=== PATIENT | female | born 1940 | race Caucasian/White ===

== ENCOUNTER 2019-06-07 07:14 | Outpatient (CLI) | payer MEDICARE ==
[2019-06-07 11:58] LABS: ALT (SGPT) 13 U/L (8-55); AST (SGOT) 21 U/L (5-34); Albumin 4.2 g/dL (3.4-4.8); Alkaline Phosphatase 73 U/L (40-110); Anion Gap 11 mmol/L (10-20); BUN (Urea Nitrogen) 19 mg/dL (9.8-20.1); Band 12 % (5-11); Calc. Creatinine Clearance 0 mL/min (70-130); Calcium 9.6 mg/dL (7.8-10.44); Carbon Dioxide 24 mmol/L (23-31); Chloride 109 mmol/L (98-107); Estimated GFR-MDRD 85; Globulin 2.3 g/dL (2.4-3.5); Glucose 98 mg/dL (83-110); Hemoglobin 13.4 g/dL (12.0-16.0); Lymphocytes 44 % (21-51); MDiff Complete? YES; Mean Corpuscular Hemoglobin 30.1 pg (27.0-31.0); Mean Corpuscular Volume 91.3 fL (78.0-98.0); Mean Platelet Volume 7.9 fL (7.4-10.4); Monocytes 5 % (0-10); Neutrophil 33 % (42-75); Platelet Count 184 thou/uL (130-400); Potassium 4.2 mmol/L (3.5-5.1); Protein, Total 6.5 g/dL (6.0-8.3); RBC Distribution Width 13.8 % (11.5-14.5); Reactive Lymphocytes 6 % (0-10); Red Blood Cell (RBC) Count 4.44 mill/uL (4.20-5.40); Sodium 140 mmol/L (136-145); White Blood Cell (WBC) Count 13.6 thou/uL (4.8-10.8)
== END 2019-06-07 07:15 | disposition home or self-care (01) ==
LOC: LABBT 07:14
PROVIDERS: ATTEND Surgery
DX: Z01.818 Encounter for other preprocedural examination (principal); R59.0 Localized enlarged lymph nodes
CPT/HCPCS: 80053; 85025; 93005; 93010

== ENCOUNTER 2019-06-12 07:49 | Day surgery (SDC) | payer MEDICARE ==
[2019-06-07 10:41] VITALS: BMI 25.8
[2019-06-12] MEDS ORDERED: Levofloxacin 500 mg/D5W 100 ml Premix Bag ONE (09:16)
[2019-06-12] MEDS ORDERED: Lidocaine 1% PF 5 ML VIAL ONE (09:27)
[2019-06-12] MEDS ORDERED: Ondansetron PF 4 MG/2 ML Vial ONE (09:27)
[2019-06-12] MEDS ORDERED: PROPOFOL 200 MG/20 ML VIAL ONE (09:27)
[2019-06-12] MEDS ORDERED: Glycopyrrolate 0.2 MG/ML 5 ML SYRINGE ONE (09:27)
[2019-06-12] MEDS ORDERED: Midazolam HCl 2 mg/2 ml Vial ONE (10:12)
[2019-06-12] MEDS ORDERED: Lidocaine 1% w/Epinephrine 1:100K 20 ML VIAL ONE (10:16)
[2019-06-12] MEDS ORDERED: Bupivacaine 0.25% HCL 30 ML VIAL ONE (10:16)
[2019-06-12] MEDS ORDERED: Fentanyl 100 MCG/2 ML VIAL ONE (10:21)
--- NOTE | 2019-06-12 12:37 | OP ---
DATE OF PROCEDURE: 06/12/2019 PREOPERATIVE DIAGNOSIS: Left femoral adenopathy. PROCEDURE PERFORMED: Left femoral lymph node biopsy. INDICATIONS: This is a 78-year-old female, who has had a CT for vague abdominal pain, was found to have adenopathy all over in the periaortic region. Then on physical exam, she was found to have nodes in her neck, axilla, and groin suspicious for lymphoma. FINDINGS: Two 3 cm lymph nodes removed from the left inguinal femoral chain. DESCRIPTION OF PROCEDURE: After informed consent was obtained, the patient was taken to the operating room, given general mask anesthesia and placed in supine position. Groin area was prepped and draped in usual fashion. Local anesthesia was infiltrated subcutaneously and deep, and a transverse inguinal incision was performed. Subcu was divided sharply. The lymph nodes were dissected out. Efferent and afferent lymphatics were ligated with 3-0 Vicryl ties. The node sent to Pathology for further analysis seems done fresh for lymphoma protocol. Hemostasis was achieved with electrocautery. Due to the size of lymph nodes, small 10-[place] round drain was placed, brought out through a separate stab wound. Subcu was reapproximated with interrupted 3-0 Vicryl. Skin was closed with a running subcuticular 4-0 Rapide. Steri-Strips applied. Sterile bandage applied. The patient tolerated the procedure well, transferred to Recovery in good condition. Sponge and needle count verified correct x2. Job ID: [id number]
[2019-06-12] MEDS ORDERED: HYDROcodone/Acetaminophen 5/325 mg Tablet ONE (12:53)
== END 2019-06-12 14:20 | disposition home or self-care (01) ==
LOC: SDC 07:49
PROVIDERS: ATTEND Surgery
PROC: 07BJ0ZX Excision of Left Inguinal Lymphatic, Open Approach, Diagnostic (ICD-10-PCS; principal; 2019-06-12)
DX: C82.35 Follicular lymphoma grade IIIa, lymph nodes of inguinal region and lower limb (principal); M19.90 Unspecified osteoarthritis, unspecified site; Z79.899 Other long term (current) drug therapy; Z87.891 Personal history of nicotine dependence; Z88.0 Allergy status to penicillin
CPT/HCPCS: 88184; 88307; 88341; 88342; 88360; J1956; J2001; J2250; J2405; J2704; J3010; S0020

== ENCOUNTER 2020-06-04 12:28 | Inpatient (IN) | payer MEDICARE ==
[2020-06-04 13:03] LABS: #Lymphocytes 0.3 thou/uL (1.20-3.40); #Monocytes 0.6 thou/uL (0.11-0.59); #Neutrophils 6.7 thou/uL (1.40-6.50); %Basophils 0.6 % (0.0-1.0); %Eosinophils 0.1 % (0.0-10.0); %Lymphocytes 4.3 % (21.0-51.0); %Monocytes 7.6 % (0.0-10.0); %Neutrophils 87.3 % (42.0-75.0); Hemoglobin 14.7 g/dL (12.0-16.0); Mean Corpuscular HGB CONC 33.1 g/dL (32.0-36.0); Mean Corpuscular Volume 87.5 fL (78.0-98.0); Mean Platelet Volume 8.7 fL (7.4-10.4); Platelet Count 193 thou/uL (130-400); RBC Distribution Width 12.8 % (11.5-14.5); Red Blood Cell (RBC) Count 5.07 mill/uL (4.20-5.40); White Blood Cell (WBC) Count 7.7 thou/uL (4.8-10.8)
[2020-06-04 13:27] LABS: ALT (SGPT) 10 U/L (8-55); AST (SGOT) 28 U/L (5-34); Albumin 3.3 g/dL (3.4-4.8); Alkaline Phosphatase 47 U/L (40-110); Anion Gap 21 mmol/L (10-20); BUN (Urea Nitrogen) 21 mg/dL (9.8-20.1); Calc. Creatinine Clearance 0 mL/min (70-130); Calcium 8.9 mg/dL (7.8-10.44); Carbon Dioxide 16 mmol/L (23-31); Chloride 103 mmol/L (98-107); Globulin 3.4 g/dL (2.4-3.5); Glucose 110 mg/dL (83-110); Lipase 53 U/L (8-78); Protein, Total 6.7 g/dL (5.8-8.1); Sodium 136 mmol/L (136-145)
--- NOTE | 2020-06-04 13:33 | RAD ---
CHEST 1 VIEW: DATE: 06/04/2020. TIME: 1:14 PM. HISTORY: Non-Hodgkin's lymphoma.weakness. FINDINGS: The heart size is normal. The aorta is tortuous. The lungs are expanded without lobar consolidation , pneumothoraces, or pleural effusions. There is minimal scarring in the left lung base. IMPRESSION: No acute process. POS: TERRELLA
[2020-06-04 14:15] LABS: CKMB 3.3 ng/mL (0-6.6)
[2020-06-04 15:22] LABS: Bacteria/HPF None Seen HPF (None Seen); Bilirubin 1+ (Negative); Blood, Urine Negative (Negative); Clarity Clear (Clear); Glucose, Urine (Dipstick) Normal (Negative); Ketone, Urine 80 mg/dL (Negative); Leukocyte Negative Leu/uL (Negative); Nitrite Negative (Negative); Protein, Urine (Dipstick) 100 mg/dL (Neg-Trace); RBC/HPF 0-3 HPF (0-3); Specific Gravity, Urine 1.035 (1.002-1.036); Urobilinogen 6 mg/dL (Less than 2); WBC/HPF 0-3 HPF (0-3)
[2020-06-04] MEDS ORDERED: Enoxaparin Sodium 60 MG/0.6 ML SYRINGE ONE (16:15)
[2020-06-04] MEDS ORDERED: Aspirin 325 MG TAB ONE (16:15)
[2020-06-04] MEDS ORDERED: Ondansetron PF 4 MG/2 ML Vial IVP PRN (16:47)
--- NOTE | 2020-06-04 16:56 | PDOC.HHP ---
Hospitalist HPI "I do not feel well" History of Present Illness: The patient is an 79-year-old female with past medical history of lymphoma on chemotherapy and history of breast cancer who was brought to the hospital by her caregiver due to increasing weakness and confusion. Patient had poor oral intake over the past week. She is unable to provide an accurate history and her complaints are nonspecific like saying I do not feel well. She denies any chest pain or shortness of breath. However, ER physician reported that the patient was complaining of chest pain. Other work-up in the ER revealed elevated troponin at 0.79. Her vitals were within normal limits and the patient was afebrile. Allergies/Adverse Reactions: Allergy/AdvReac Type Severity Reaction Status Date / Time Penicillins Allergy itching Verified 06/07/19 10:43 Home Medications: Medication Instructions Recorded Confirmed Type Sertraline HCl 50 mg PO QAM 06/07/19 06/07/19 History Tumeric 1 tab PO DAILY 06/07/19 History Past History: PMHx: As noted above PSHx: No surgical history FHx: Noncontributory for the current presentation Social: The patient denies smoking or illicit drug use. Daily alcohol intake was reported. Hospitalist HPI ROS All other systems reviewed; all pertinent +/- noted in HPI/Subj Hospitalist Exam General Appearance: awake alert ENT: normocephalic atraumatic Neck: supple Heart: RRR, no murmur, no gallops Gastrointestinal: soft Extremities: no cyanosis, no clubbing Neurological: cranial nerve grossly intact, no weakness Hospitalist Results Result Diagrams: 06/04/20 12:54 06/04/20 12:55 Lab results: Laboratory Last Values WBC 7.7 thou/uL (4.8-10.8) 06/04/20 12:54 RBC 5.07 mill/uL (4.20-5.40) 06/04/20 12:54 Hgb 14.7 g/dL (12.0-16.0) 06/04/20 12:54 Hct 44.4 % (36.0-47.0) 06/04/20 12:54 MCV 87.5 fL (78.0-98.0) 06/04/20 12:54 MCH 29.0 pg (27.0-31.0) 06/04/20 12:54 MCHC 33.1 g/dL (32.0-36.0) 06/04/20 12:54 RDW 12.8 % (11.5-14.5) 06/04/20 12:54 Plt Count 193 thou/uL (130-400) 06/04/20 12:54 MPV 8.7 fL (7.4-10.4) 06/04/20 12:54 Neutrophils % 87.3 % (42.0-75.0) H 06/04/20 12:54 Lymphocytes % 4.3 % (21.0-51.0) L 06/04/20 12:54 Monocytes % 7.6 % (0.0-10.0) 06/04/20 12:54 Eosinophils % 0.1 % (0.0-10.0) 06/04/20 12:54 Basophils % 0.6 % (0.0-1.0) 06/04/20 12:54 Neutrophils # 6.7 thou/uL (1.40-6.50) H 06/04/20 12:54 Lymphocytes # 0.3 thou/uL (1.20-3.40) L 06/04/20 12:54 Monocytes # 0.6 thou/uL (0.11-0.59) H 06/04/20 12:54 Eosinophils # 0.0 thou/uL (0.0-0.7) 06/04/20 12:54 Basophils # 0.0 thou/uL (0.0-0.2) 06/04/20 12:54 Sodium 136 mmol/L (136-145) 06/04/20 12:55 Potassium 4.0 mmol/L (3.5-5.1) 06/04/20 12:55 Chloride 103 mmol/L (98-107) 06/04/20 12:55 Carbon Dioxide 16 mmol/L (23-31) L 06/04/20 12:55 Anion Gap 21 mmol/L (10-20) H 06/04/20 12:55 BUN 21 mg/dL (9.8-20.1) H 06/04/20 12:55 Creatinine 0.59 mg/dL (0.6-1.1) L 06/04/20 12:55 Estimated GFR (MDRD) Greater than 90 06/04/20 12:55 Glucose 110 mg/dL (83-110) 06/04/20 12:55 Calcium 8.9 mg/dL (7.8-10.44) 06/04/20 12:55 Total Bilirubin 1.0 mg/dL (0.2-1.2) 06/04/20 12:55 AST 28 U/L (5-34) 06/04/20 12:55 ALT 10 U/L (8-55) 06/04/20 12:55 Alkaline Phosphatase 47 U/L (40-110) 06/04/20 12:55 CK-MB (CK-2) 3.3 ng/mL (0-6.6) 06/04/20 12:55 Troponin I 0.790 ng/mL (< 0.028) H* 06/04/20 12:55 B-Natriuretic Peptide 942.1 pg/mL (0-100) H 06/04/20 12:51 Serum Total Protein 6.7 g/dL (5.8-8.1) 06/04/20 12:55 Albumin 3.3 g/dL (3.4-4.8) L 06/04/20 12:55 Globulin 3.4 g/dL (2.4-3.5) 06/04/20 12:55 Albumin/Globulin Ratio 1.0 g/dL (1.2-2.2) L 06/04/20 12:55 Lipase 53 U/L (8-78) 06/04/20 12:55 Urine Color Yellow (Yellow) 06/04/20 14:53 Urine Clarity Clear (Clear) 06/04/20 14:53 Urine pH 6.0 (5.0-9.0) 06/04/20 14:53 Ur Specific [place] 1.035 (1.002-1.036) 06/04/20 14:53 Urine Protein 100 mg/dL (Neg-Trace) A 06/04/20 14:53 Urine Glucose (UA) Normal mg/dL (Negative) 06/04/20 14:53 Urine Ketones 80 mg/dL (Negative) A 06/04/20 14:53 Urine Blood Negative (Negative) 06/04/20 14:53 Urine Nitrite Negative (Negative) 06/04/20 14:53 Urine Bilirubin 1+ (Negative) A 06/04/20 14:53 Urine Urobilinogen 6 mg/dL (Less than 2) A 06/04/20 14:53 Ur Leukocyte Esterase Negative Carolyn/uL (Negative) 06/04/20 14:53 Urine RBC 0-3 HPF (0-3) 06/04/20 14:53 Urine WBC 0-3 HPF (0-3) 06/04/20 14:53 Ur Squamous Epith Cells 4-6 HPF (0-3) A 06/04/20 14:53 Urine Bacteria None Seen HPF (None Seen) 06/04/20 14:53 Hospitalist H&P A/P (1) Delirium Code(s): R41.0 - DISORIENTATION, UNSPECIFIED Status: Acute (2) Elevated troponin Code(s): R77.8 - OTHER SPECIFIED ABNORMALITIES OF PLASMA PROTEINS Status: Acute Assessment and Plan: Likely related to demand ischemia. (3) Lymphoma Status: Acute (4) Decreased oral intake Code(s): R63.8 - OTHER SYMPTOMS AND SIGNS CONCERNING FOOD AND FLUID INTAKE Status: Acute Plan: The patient presented with nonspecific symptoms. She is confused per her caregiver. Her troponin level slightly elevated. We will continue to trend troponins. This could be related to her poor oral intake lately. BNP is elevated and the patient does not have any history of CHF. Chest x-ray was clean. No evidence of edema. I will check echocardiogram. Aspirin and atorvastatin initiated. Enoxaparin for DVT prophylaxis.
[2020-06-04] MEDS: Sodium Chloride 0.9% 1,000 ML IV SCH (20:07)
[2020-06-04 20:08] LABS: Critical Call Chem Troponin I RESULT DECREASING; Troponin I 0.756 ng/mL (< 0.028)
[2020-06-04] MEDS: Atorvastatin Calcium 40 MG TAB PO SCH (23:12)
[2020-06-05] MEDS ORDERED: Acetaminophen 325 MG TAB ONE (04:51)
[2020-06-05] MEDS: Acetaminophen 325 MG TAB PO PRN ×2 (04:57→15:53)
[2020-06-05 05:02] LABS: #Lymphocytes 0.3 thou/uL (1.20-3.40); #Monocytes 0.5 thou/uL (0.11-0.59); #Neutrophils 4.9 thou/uL (1.40-6.50); %Basophils 0.2 % (0.0-1.0); %Eosinophils 0.1 % (0.0-10.0); %Lymphocytes 4.4 % (21.0-51.0); %Neutrophils 86.3 % (42.0-75.0); Hemoglobin 13.7 g/dL (12.0-16.0); Mean Corpuscular HGB CONC 33.4 g/dL (32.0-36.0); Mean Corpuscular Hemoglobin 28.9 pg (27.0-31.0); Mean Corpuscular Volume 86.5 fL (78.0-98.0); Mean Platelet Volume 8.9 fL (7.4-10.4); Platelet Count 167 thou/uL (130-400); RBC Distribution Width 12.7 % (11.5-14.5); Red Blood Cell (RBC) Count 4.73 mill/uL (4.20-5.40); White Blood Cell (WBC) Count 5.6 thou/uL (4.8-10.8)
[2020-06-05 05:26] LABS: Anion Gap 19 mmol/L (10-20); BUN (Urea Nitrogen) 23 mg/dL (9.8-20.1); Calc. Creatinine Clearance 0 mL/min (70-130); Calcium 8.8 mg/dL (7.8-10.44); Carbon Dioxide 18 mmol/L (23-31); Chloride 102 mmol/L (98-107); Glucose 85 mg/dL (83-110); Potassium 3.6 mmol/L (3.5-5.1); Sodium 135 mmol/L (136-145)
[2020-06-05] MEDS: Sodium Chloride 0.9% 1,000 ML IV SCH ×2 (07:50→15:54)
[2020-06-05] MEDS: Aspirin 81 mg Enteric Coated Tablet PO SCH (08:17)
[2020-06-05] MEDS: Enoxaparin Sodium 40 MG/0.4 ML SYRINGE SC SCH ×2 (08:17→10:15)
--- NOTE | 2020-06-05 09:56 | PDOC.HOSPP ---
- Subjective Encounter Date: 06/05/20 Subjective: Patient denies any chest pain or shortness of breath. - Objective Vital Signs & Weight: Vital Signs (12 hours) Temp Pulse Resp BP Pulse Ox 06/05/20 07:40 98.1 F 88 21 H 105/55 L 100 06/05/20 04:59 99.7 F H 98 20 124/65 97 06/05/20 04:57 99.7 F H 06/04/20 23:40 98.7 F 84 18 93/52 L 96 Weight Weight 136 lb 1.6 oz Result Diagrams: 06/05/20 04:38 06/05/20 04:39 Hospitalist ROS - Medication Medications: Active Medications Generic Name Dose Route Start Last Admin Trade Name Freq PRN Reason Stop Dose Admin Acetaminophen 650 mg 06/04/20 16:47 06/05/20 04:57 Acetaminophen 325 Mg Tab PO 650 mg Q4H PRN Administration Headache/Fever/Mild Pain (1-3) Aspirin 81 mg 06/05/20 09:00 06/05/20 08:17 Aspirin 81 Mg Enteric Coated Tablet PO 81 mg DAILY JOZEF Administration Atorvastatin Calcium 40 mg 06/04/20 21:00 06/04/20 23:12 Atorvastatin Calcium 40 Mg Tab PO 40 mg HS JOZEF Administration Sodium Chloride 1,000 mls @ 70 mls/hr 06/04/20 17:00 06/05/20 07:50 Normal Saline 0.9% IV Not Given .[id number] [facility] Hospitalist Exam Vitals: Vital Signs (12 hours) Temp Pulse Resp BP Pulse Ox 06/05/20 07:40 98.1 F 88 21 H 105/55 L 100 06/05/20 04:59 99.7 F H 98 20 124/65 97 06/05/20 04:57 99.7 F H 06/04/20 23:40 98.7 F 84 18 93/52 L 96 Weight Weight 136 lb 1.6 oz General Appearance: awake alert ENT: normocephalic atraumatic Neck: supple Heart: RRR, no murmur, no gallops Respiratory: CTAB, no wheezes Extremities: no cyanosis, no clubbing Neurological: cranial nerve grossly intact, no new deficit Hosp A/P (1) Delirium Code(s): R41.0 - DISORIENTATION, UNSPECIFIED Status: Acute (2) Elevated troponin Code(s): R77.8 - OTHER SPECIFIED ABNORMALITIES OF PLASMA PROTEINS Status: Acute (3) Lymphoma Status: Acute (4) Decreased oral intake Code(s): R63.8 - OTHER SYMPTOMS AND SIGNS CONCERNING FOOD AND FLUID INTAKE Status: Acute - Plan Troponin level peaked at 0.8. No chest pain or shortness of breath. The patient is n.p.o. this morning and cardiology consult pending. Continue aspirin and atorvastatin. Continue IV hydration.
--- NOTE | 2020-06-05 15:44 | CON ---
DATE OF CONSULTATION: 06/05/2020 REASON FOR CONSULTATION: Elevated troponin. HISTORY OF PRESENT ILLNESS: Ms. Washington is an 79-year-old woman with a history of lymphoma, recently being treated with chemotherapy. She presented with increased weakness. There is verbiage in the chart, stating she had chest pain while in the emergency room, although during my interview, she denies chest pain, pressure, or shortness of breath. Her main complaint again is weakness. She has had a 20-pound weight loss in the last 6 months. No previous history of underlying coronary artery disease. PAST MEDICAL HISTORY: As above including breast cancer. PAST SURGICAL HISTORY: None. FAMILY HISTORY: Negative. SOCIAL HISTORY: No current tobacco or alcohol use. HOME MEDICATIONS: None. ALLERGIES: PENICILLIN. REVIEW OF SYSTEMS: A 10-point review of systems is reviewed as above, otherwise negative. PHYSICAL EXAMINATION: VITAL SIGNS: Blood pressure 103/59, pulse 85, temperature 98.8. GENERAL: The patient does appear weak and underweight. NEUROLOGIC: The patient is alert and oriented x3 with no focal neurologic deficits. HEENT: Sclerae without icterus. Mouth has moist mucous membranes with normal pallor. NECK: No JVD. Carotid upstroke brisk. No bruits bilaterally. LUNGS: Clear to auscultation with unlabored respirations. BACK: No scoliosis or kyphosis. CARDIAC: Regular rate and rhythm with normal S1 and S2. No S3 or S4 noted. No significant rubs, murmurs, thrills, or gallops noted throughout the precordium. PMI is not displaced. There is no parasternal heave. ABDOMEN: Soft, nontender, nondistended. No peritoneal signs present. No hepatosplenomegaly. No abnormal striae. EXTREMITIES: 2+ femoral and 2+ dorsalis pedis pulses. No cyanosis, clubbing, or edema. SKIN: No gross abnormalities. PERTINENT LABORATORY DATA: Hemoglobin 13.7, hematocrit 40.9. Creatinine 0.57. Peak troponin 0.870. BNP 942. IMPRESSION: 1. Elevated troponin. 2. Weakness. 3. Weight loss. 4. Lymphoma. RECOMMENDATIONS: Ms. Washington has no risk factors for underlying coronary artery disease. Her elevated troponin is likely due to demand ischemia. It would be considered as type 2 OK. Recommend echo with Doppler to assess her LVEF and assess whether her increased BNP is secondary to diastolic versus systolic dysfunction. Again, she has no current symptoms suggesting angina. Her albumin is also low. We will review echo. Job ID: [id number]
[2020-06-05] MEDS: Atorvastatin Calcium 40 MG TAB PO SCH (19:45)
[2020-06-06] MEDS: Acetaminophen 325 MG TAB PO PRN (00:18)
[2020-06-06 05:47] LABS: #Lymphocytes 0.4 thou/uL (1.20-3.40); #Monocytes 0.3 thou/uL (0.11-0.59); #Neutrophils 2.6 thou/uL (1.40-6.50); %Eosinophils 0.2 % (0.0-10.0); %Lymphocytes 11.1 % (21.0-51.0); %Monocytes 8.8 % (0.0-10.0); %Neutrophils 79.9 % (42.0-75.0); Hemoglobin 12.9 g/dL (12.0-16.0); Mean Corpuscular Hemoglobin 30.9 pg (27.0-31.0); Mean Corpuscular Volume 88.5 fL (78.0-98.0); Mean Platelet Volume 8.9 fL (7.4-10.4); Platelet Count 142 thou/uL (130-400); RBC Distribution Width 12.7 % (11.5-14.5); Red Blood Cell (RBC) Count 4.17 mill/uL (4.20-5.40); White Blood Cell (WBC) Count 3.2 thou/uL (4.8-10.8)
[2020-06-06 06:12] LABS: Anion Gap 13 mmol/L (10-20); BUN (Urea Nitrogen) 19 mg/dL (9.8-20.1); Calc. Creatinine Clearance 86 mL/min (70-130); Calcium 8.2 mg/dL (7.8-10.44); Carbon Dioxide 23 mmol/L (23-31); Chloride 108 mmol/L (98-107); Glucose 91 mg/dL (83-110); Potassium 3.5 mmol/L (3.5-5.1); Sodium 140 mmol/L (136-145)
[2020-06-06] MEDS: Cefepime 1 GM in Sodium Chloride 0.9% 100 ML IVPB SCH ×2 (08:15→21:16)
[2020-06-06] MEDS: Aspirin 81 mg Enteric Coated Tablet PO SCH (08:15)
[2020-06-06] MEDS: Enoxaparin Sodium 40 MG/0.4 ML SYRINGE SC SCH (08:16)
[2020-06-06] MEDS: Carvedilol 3.125 MG TAB PO SCH ×4 (08:20→16:01)
[2020-06-06] MEDS: Vancomycin 1 GM in Premix Bag 1 BAG IVPB SCH ×2 (08:20→22:19)
[2020-06-06] MEDS ORDERED: Carvedilol 6.25 MG TAB PO SCH (09:00)
--- NOTE | 2020-06-06 09:56 | PDOC.HOSPP ---
- Subjective Encounter Date: 06/06/20 Subjective: Patient denies chest pain, shortness of breath, nausea, vomiting, diarrhea, or dysuria. She is still not eating well but is drinking fluid better. She states she follows at [facility] for her lymphoma. Her last chemo was around the beginning of April. She says she is independent for her ADLs. - Objective Vital Signs & Weight: Vital Signs (12 hours) Temp Pulse Resp BP BP Pulse Ox 06/06/20 08:00 98.1 F 93 20 104/58 L 95 06/06/20 03:50 99.5 F 84 16 108/58 L 93 L 06/06/20 00:10 100.6 F H 108 H 16 129/64 92 L 06/05/20 22:18 99.6 F 102 H 28 H 110/54 L 89 L Weight Weight 136 lb 1.6 oz I&O: 06/05/20 06/06/20 06/07/20 06:59 06:59 06:59 Intake Total 1037 966 Output Total 0 Balance 1037 966 Result Diagrams: 06/06/20 05:22 06/06/20 05:22 Hospitalist ROS - Review of Systems Respiratory: denies: shortness of breath Cardiovascular: denies: chest pain Gastrointestinal: denies: nausea, vomiting, diarrhea Genitourinary: denies: dysuria - Medication Medications: Active Medications Generic Name Dose Route Start Last Admin Trade Name Freq PRN Reason Stop Dose Admin Acetaminophen 650 mg 06/04/20 16:47 06/06/20 00:18 Acetaminophen 325 Mg Tab PO 650 mg Q4H PRN Administration Headache/Fever/Mild Pain (1-3) Aspirin 81 mg 06/05/20 09:00 06/06/20 08:15 Aspirin 81 Mg Enteric Coated Tablet PO 81 mg DAILY JOZEF Administration Atorvastatin Calcium 40 mg 06/04/20 21:00 06/05/20 19:45 Atorvastatin Calcium 40 Mg Tab PO 40 mg HS JOZEF Administration Carvedilol 3.125 mg 06/06/20 09:00 06/06/20 08:40 Carvedilol 3.125 Mg Tab PO 3.125 mg BID JOZEF Administration Enoxaparin Sodium 40 mg 06/05/20 09:00 06/06/20 08:16 Enoxaparin Sodium 40 Mg/0.4 Ml Syringe SC 40 mg 0900 JOZEF Administration Sodium Chloride 1,000 mls @ 70 mls/hr 06/04/20 17:00 06/05/20 15:54 Normal Saline 0.9% IV 1,000 mls .[id number] JOZEF Administration Cefepime HCl 1 gm/ Sodium 100 mls @ 200 mls/hr 06/06/20 09:00 06/06/20 08:15 Chloride IVPB 100 mls Q12HR JOZEF Administration Vancomycin HCl 1 gm/ Device 200 mls @ 200 mls/hr 06/06/20 09:00 06/06/20 08:20 IVPB 200 mls Q12HR JOZEF Administration Sodium Chloride 10 ml 06/06/20 09:00 06/06/20 08:16 Flush - Normal Saline 10 Ml Syringe IVF 10 ml Q12HR JOZEF Administration Hospitalist Exam Vitals: Vital Signs (12 hours) Temp Pulse Resp BP BP Pulse Ox 06/06/20 08:00 98.1 F 93 20 104/58 L 95 06/06/20 03:50 99.5 F 84 16 108/58 L 93 L 06/06/20 00:10 100.6 F H 108 H 16 129/64 92 L 06/05/20 22:18 99.6 F 102 H 28 H 110/54 L 89 L Weight Weight 136 lb 1.6 oz General Appearance: NAD, awake alert ENT: dry oral mucosa Neck: supple Heart: RRR, no murmur Respiratory: CTAB Gastrointestinal: soft, non-tender, non-distended, normal bowel sounds Extremities: no edema Neurological - other findings: Follows commands Psychiatric: A&O x 3, oriented to person, oriented to place, oriented to time Hosp A/P (1) Fever Code(s): R50.9 - FEVER, UNSPECIFIED Status: Acute Plan: Patient had fever with tachycardia last night. Lab showed leukopenia. Plan: -UA -blood culture -Vanc and Cefepim for now (2) Decreased oral intake Code(s): R63.8 - OTHER SYMPTOMS AND SIGNS CONCERNING FOOD AND FLUID INTAKE Status: Acute Plan: Could be associated with her lymphoma. Her albumin is mildly decreased. Plan: -consult dietitian (3) Delirium Code(s): R41.0 - DISORIENTATION, UNSPECIFIED Status: Acute Plan: Resolved. Plan: -monitor and will try to use prevention mechanisms (4) Elevated troponin Code(s): R77.8 - OTHER SPECIFIED ABNORMALITIES OF PLASMA PROTEINS Status: Acute Plan: Trended down. Patient denies chest pain or shortness of breath. She was seen by training technician, and Echo was recommended. This is likely from demand ischemia. Plan: -f/u Echo result (5) Lymphoma Status: Chronic Plan: Follows at [facility]. Last chemo was in April,. Plan: -f/u with oncology outpatient as scheduled
[2020-06-06] MEDS: Sodium Chloride 0.9% 1,000 ML IV SCH (10:37)
[2020-06-06 10:43] LABS: Bacteria/HPF None Seen HPF (None Seen); Bilirubin 1+ (Negative); Blood, Urine Negative (Negative); Clarity Turbid (Clear); Glucose, Urine (Dipstick) Normal (Negative); Ketone, Urine 10 mg/dL (Negative); Leukocyte 500 Leu/uL (Negative); Nitrite Negative (Negative); Protein, Urine (Dipstick) 50 mg/dL (Neg-Trace); Specific Gravity, Urine 1.034 (1.002-1.036); WBC/HPF 21-50 HPF (0-3)
[2020-06-06 10:46] LABS: Urine Culture Reflex No No
--- NOTE | 2020-06-06 12:15 | PDOC.CPN ---
- Subjective Date: 06/06/20 Time: 12:12 Interval history: No complaints. Fever - Review of Systems General: reports: fever/chills, fatigue. denies: weight/appetite/sleep changes, night sweats Respiratory: denies: cough, congestion, shortness of breath, exercise intolerance Cardiovascular: denies: chest pain, palpitation, edema, paroxysmal nocturnal dyspnea, orthopnea Gastrointestinal: denies: nausea, vomiting, diarrhea, constipation, abd pain, GI bleeding Musculoskeletal: denies: pain, tenderness, stiffness, swelling, arthritis/arthralgias Neurological: reports: weakness - Objective Allergies/Adverse Reactions: Allergies Allergy/AdvReac Type Severity Reaction Status Date / Time Penicillins Allergy itching Verified 06/05/20 05:04 Visit Medications: Current Medications Acetaminophen (Acetaminophen 325 Mg Tab) 650 mg PO Q4H PRN PRN Reason: Headache/Fever/Mild Pain (1-3) Last Admin: 06/06/20 00:18 Dose: 650 mg Documented by: Aspirin (Aspirin 81 Mg Enteric Coated Tablet) 81 mg PO DAILY [facility] Last Admin: 06/06/20 08:15 Dose: 81 mg Documented by: Atorvastatin Calcium (Atorvastatin Calcium 40 Mg Tab) 40 mg PO HS [facility] Last Admin: 06/05/20 19:45 Dose: 40 mg Documented by: Carvedilol (Carvedilol 3.125 Mg Tab) 3.125 mg PO BID [facility] Last Admin: 06/06/20 08:40 Dose: 3.125 mg Documented by: Enoxaparin Sodium (Enoxaparin Sodium 40 Mg/0.4 Ml Syringe) 40 mg SC 0900 [facility] Last Admin: 06/06/20 08:16 Dose: 40 mg Documented by: Sodium Chloride (Normal Saline 0.9%) 1,000 mls @ 70 mls/hr IV .[id number] [facility] Last Admin: 06/06/20 10:37 Dose: Not Given Documented by: Cefepime HCl 1 gm/ Sodium (Chloride) 100 mls @ 200 mls/hr IVPB Q12HR [facility] Last Admin: 06/06/20 08:15 Dose: 100 mls Documented by: Vancomycin HCl 1 gm/ Device 200 mls @ 200 mls/hr IVPB Q12HR [facility] Last Admin: 06/06/20 08:20 Dose: 200 mls Documented by: Influenza Virus Vaccine Quadrival (Flu Vacc [id number](65yr Up)/Pf 240 Mcg/0.7 Ml Syringe) 240 mcg IM .ONCE ONE Stop: 06/06/20 13:01 Last Admin: 06/06/20 10:37 Dose: Not Given Documented by: Miscellaneous Medication (Pharmacy To Dose 1 Each) 1 each IVPB ASDIR JOZEF Ondansetron HCl (Ondansetron Pf 4 Mg/2 Ml Vial) 4 mg IVP Q6H PRN PRN Reason: Nausea/Vomiting Sodium Chloride (Flush - Normal Saline 10 Ml Syringe) 10 ml IVF Q12HR JOZEF Last Admin: 06/06/20 08:16 Dose: 10 ml Documented by: Sodium Chloride (Flush - Normal Saline 10 Ml Syringe) 10 ml IVF PRN PRN PRN Reason: Saline Flush Vital Signs & Weight: Vital Signs Temp Pulse Resp BP BP Pulse Ox 06/06/20 08:00 98.1 F 93 20 104/58 L 95 06/06/20 03:50 99.5 F 84 16 108/58 L 93 L Weight 136 lb 1.6 oz - Physical Exam General: alert & oriented x3, appears well, no apparent distress, cachectic HEENT: mucus membranes moist Neck: supple neck Cardiac: regular rate and rhythm Lungs: normal breath sounds, no wheezes Neuro: grossly intact Abdomen: soft Extremities: no cyanosis, no clubbing, no edema Musculoskeletal: no pain - Labs Result Diagrams: 06/06/20 05:22 06/06/20 05:22 Troponin/CKMB CK-MB (CK-2) 3.3 ng/mL (0-6.6) 06/04/20 12:55 Troponin I 0.756 ng/mL (< 0.028) H* 06/04/20 19:33 - Assessment/Plan Assessment/Plan: 1. Dilated DIRECTOR POST 2. Takotsubo's 3. Lymphoma 4. UA Discussed with patient will add meds slowly and order LifeVest. Does need stress in the future, but will hold for now as febrile.
[2020-06-06] MEDS ORDERED: FLU VACC QS2020-21(65YR UP)/PF 240 MCG/0.7 ML SYRINGE IM ONE (13:00)
[2020-06-06] MEDS: Atorvastatin Calcium 40 MG TAB PO SCH (21:15)
[2020-06-07 05:12] LABS: #Lymphocytes 0.3 thou/uL (1.20-3.40); #Monocytes 0.4 thou/uL (0.11-0.59); #Neutrophils 3.4 thou/uL (1.40-6.50); %Basophils 1.1 % (0.0-1.0); %Eosinophils 0.5 % (0.0-10.0); %Lymphocytes 7.3 % (21.0-51.0); %Monocytes 9.6 % (0.0-10.0); %Neutrophils 81.5 % (42.0-75.0); Hemoglobin 11.7 g/dL (12.0-16.0); Mean Corpuscular HGB CONC 34.2 g/dL (32.0-36.0); Mean Corpuscular Hemoglobin 29.8 pg (27.0-31.0); Mean Corpuscular Volume 87.1 fL (78.0-98.0); Mean Platelet Volume 8.9 fL (7.4-10.4); Platelet Count 149 thou/uL (130-400); RBC Distribution Width 12.7 % (11.5-14.5); Red Blood Cell (RBC) Count 3.93 mill/uL (4.20-5.40); White Blood Cell (WBC) Count 4.2 thou/uL (4.8-10.8)
[2020-06-07 05:34] LABS: Anion Gap 12 mmol/L (10-20); BUN (Urea Nitrogen) 15 mg/dL (9.8-20.1); Calc. Creatinine Clearance 95 mL/min (70-130); Calcium 7.8 mg/dL (7.8-10.44); Carbon Dioxide 19 mmol/L (23-31); Chloride 106 mmol/L (98-107); Glucose 82 mg/dL (83-110); Potassium 3.3 mmol/L (3.5-5.1); Sodium 134 mmol/L (136-145)
[2020-06-07] MEDS: Sodium Chloride 0.9% 1,000 ML IV SCH ×2 (06:10→15:48)
[2020-06-07] MEDS: Aspirin 81 mg Enteric Coated Tablet PO SCH (07:55)
[2020-06-07] MEDS: Cefepime 1 GM in Sodium Chloride 0.9% 100 ML IVPB SCH ×2 (07:56→20:00)
[2020-06-07] MEDS: Vancomycin 1 GM in Premix Bag 1 BAG IVPB SCH ×2 (07:56→21:32)
[2020-06-07] MEDS: Carvedilol 3.125 MG TAB PO SCH (07:56)
[2020-06-07] MEDS: Enoxaparin Sodium 40 MG/0.4 ML SYRINGE SC SCH (07:57)
[2020-06-07] MEDS: Acetaminophen 325 MG TAB PO PRN (07:58)
[2020-06-07] MEDS ORDERED: Lisinopril 2.5 MG TAB PO SCH (09:00)
[2020-06-07] MEDS ORDERED: Sodium Chloride 0.9% 500 ML IV SCH (12:15)
--- NOTE | 2020-06-07 15:07 | PDOC.CPN ---
- Subjective Date: 06/07/20 Time: 14:15 Interval history: Patient became hypotensive with Coreg. Now stopped. No new issues - Review of Systems General: reports: fatigue. denies: fever/chills, weight/appetite/sleep changes, night sweats Respiratory: denies: cough, congestion, shortness of breath, exercise intolerance Cardiovascular: denies: chest pain, palpitation, edema, paroxysmal nocturnal dyspnea, orthopnea Gastrointestinal: denies: nausea, vomiting, diarrhea, constipation, abd pain, GI bleeding Musculoskeletal: denies: pain, tenderness, stiffness, swelling, arthritis/arthralgias Neurological: reports: weakness - Objective Allergies/Adverse Reactions: Allergies Allergy/AdvReac Type Severity Reaction Status Date / Time Penicillins Allergy itching Verified 06/05/20 05:04 Visit Medications: Current Medications Acetaminophen (Acetaminophen 325 Mg Tab) 650 mg PO Q4H PRN PRN Reason: Headache/Fever/Mild Pain (1-3) Last Admin: 06/07/20 07:58 Dose: 650 mg Documented by: Aspirin (Aspirin 81 Mg Enteric Coated Tablet) 81 mg PO DAILY [facility] Last Admin: 06/07/20 07:55 Dose: 81 mg Documented by: Atorvastatin Calcium (Atorvastatin Calcium 40 Mg Tab) 40 mg PO HS [facility] Last Admin: 06/06/20 21:15 Dose: 40 mg Documented by: Enoxaparin Sodium (Enoxaparin Sodium 40 Mg/0.4 Ml Syringe) 40 mg SC 0900 [facility] Last Admin: 06/07/20 07:57 Dose: 40 mg Documented by: Sodium Chloride (Normal Saline 0.9%) 1,000 mls @ 70 mls/hr IV .[id number] [facility] Last Admin: 06/07/20 06:10 Dose: 1,000 mls Documented by: Cefepime HCl 1 gm/ Sodium (Chloride) 100 mls @ 200 mls/hr IVPB Q12HR [facility] Last Admin: 06/07/20 07:56 Dose: 100 mls Documented by: Vancomycin HCl 1 gm/ Device 200 mls @ 200 mls/hr IVPB Q12HR [facility] Last Admin: 06/07/20 07:56 Dose: 200 mls Documented by: Miscellaneous Medication (Pharmacy To Dose 1 Each) 1 each IVPB ASDIR [facility] Ondansetron HCl (Ondansetron Pf 4 Mg/2 Ml Vial) 4 mg IVP Q6H PRN PRN Reason: Nausea/Vomiting Sodium Chloride (Flush - Normal Saline 10 Ml Syringe) 10 ml IVF Q12HR [facility]ZEF Last Admin: 06/07/20 07:57 Dose: 10 ml Documented by: Sodium Chloride (Flush - Normal Saline 10 Ml Syringe) 10 ml IVF PRN PRN PRN Reason: Saline Flush Vital Signs & Weight: Vital Signs Temp Pulse Pulse Resp BP BP BP 06/07/20 13:33 06/07/20 11:50 97.2 F L 72 18 06/07/20 10:32 91 86/48 L 06/07/20 09:19 80 75/49 L 79/47 L 06/07/20 08:00 98.6 F 91 20 06/07/20 03:27 98.8 F 89 19 BP BP BP Pulse Ox 06/07/20 13:33 128/78 06/07/20 11:50 88/51 L 94 L 06/07/20 10:32 86/53 L 98/51 L 88/48 L 06/07/20 09:19 06/07/20 08:00 116/54 L 93 L 06/07/20 03:27 110/60 92 L Admit Weight 136 lb 1.6 oz Weight 136 lb 1.6 oz - Physical Exam General: alert & oriented x3, appears well, no apparent distress HEENT: mucus membranes moist, normocephaly Neck: supple neck Cardiac: regular rate and rhythm Lungs: clear to auscultation Neuro: grossly intact Abdomen: soft, non-tender Extremities: no cyanosis, no edema Skin: clear - Labs Result Diagrams: 06/07/20 04:56 06/07/20 04:56 Troponin/CKMB CK-MB (CK-2) 3.3 ng/mL (0-6.6) 06/04/20 12:55 Troponin I 0.756 ng/mL (< 0.028) H* 06/04/20 19:33 - Assessment/Plan Assessment/Plan: 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 Takotsubo's 3. Lymphoma 4. UTI Continue antibiotics. Patient did not tolerate Coreg. Could consider midodrine in combination. Will d/w RG. LifeVest ordered.
--- NOTE | 2020-06-07 15:43 | PDOC.HOSPP ---
- Subjective Encounter Date: 06/07/20 Subjective: Patient reports she is actually feeling somewhat better. Feels like she is breathing comfortably. Her appetite is coming back a bit. - Objective Vital Signs & Weight: Vital Signs (12 hours) Temp Pulse Pulse Resp BP BP BP 06/07/20 13:33 06/07/20 11:50 97.2 F L 72 18 06/07/20 10:32 91 86/48 L 06/07/20 09:19 80 75/49 L 79/47 L 06/07/20 08:00 98.6 F 91 20 BP BP BP Pulse Ox 06/07/20 13:33 128/78 06/07/20 11:50 88/51 L 94 L 06/07/20 10:32 86/53 L 98/51 L 88/48 L 06/07/20 09:19 06/07/20 08:00 116/54 L 93 L Weight Admit Weight 136 lb 1.6 oz Weight 136 lb 1.6 oz I&O: 06/06/20 06/07/20 06/08/20 06:59 06:59 06:59 Intake Total 1037 1291 440 Output Total 0 600 350 Balance 1037 691 90 Result Diagrams: 06/07/20 04:56 06/07/20 04:56 Hospitalist ROS - Medication Medications: Active Medications Generic Name Dose Route Start Last Admin Trade Name Freq PRN Reason Stop Dose Admin Acetaminophen 650 mg 06/04/20 16:47 06/07/20 07:58 Acetaminophen 325 Mg Tab PO 650 mg Q4H PRN Administration Headache/Fever/Mild Pain (1-3) Aspirin 81 mg 06/05/20 09:00 06/07/20 07:55 Aspirin 81 Mg Enteric Coated Tablet PO 81 mg DAILY JOZEF Administration Atorvastatin Calcium 40 mg 06/04/20 21:00 06/06/20 21:15 Atorvastatin Calcium 40 Mg Tab PO 40 mg HS JOZEF Administration Enoxaparin Sodium 40 mg 06/05/20 09:00 06/07/20 07:57 Enoxaparin Sodium 40 Mg/0.4 Ml Syringe SC 40 mg 0900 JOZEF Administration Sodium Chloride 1,000 mls @ 70 mls/hr 06/04/20 17:00 06/07/20 06:10 Normal Saline 0.9% IV 1,000 mls .[id number] JOZEF Administration Cefepime HCl 1 gm/ Sodium 100 mls @ 200 mls/hr 06/06/20 09:00 06/07/20 07:56 Chloride IVPB 100 mls Q12HR JOZEF Administration Vancomycin HCl 1 gm/ Device 200 mls @ 200 mls/hr 06/06/20 09:00 06/07/20 07:56 IVPB 200 mls Q12HR JOZEF Administration Sodium Chloride 10 ml 06/06/20 09:00 06/07/20 07:57 Flush - Normal Saline 10 Ml Syringe IVF 10 ml Q12HR JOZEF Administration Hospitalist Exam Vitals: Vital Signs (12 hours) Temp Pulse Pulse Resp BP BP BP 06/07/20 13:33 06/07/20 11:50 97.2 F L 72 18 06/07/20 10:32 91 86/48 L 06/07/20 09:19 80 75/49 L 79/47 L 06/07/20 08:00 98.6 F 91 20 BP BP BP Pulse Ox 06/07/20 13:33 128/78 06/07/20 11:50 88/51 L 94 L 06/07/20 10:32 86/53 L 98/51 L 88/48 L 06/07/20 09:19 06/07/20 08:00 116/54 L 93 L Weight Admit Weight 136 lb 1.6 oz Weight 136 lb 1.6 oz General Appearance: NAD, awake alert Heart: RRR, no murmur, no gallops, no rubs, normal peripheral pulses Respiratory: CTAB, no wheezes, no rales, no ronchi, normal chest expansion, no tachypnea, normal percussion Gastrointestinal: soft, non-tender, non-distended, normal bowel sounds, no palp able masses, no hepatomegaly, no splenomegaly, no bruit Extremities: no cyanosis, no clubbing, no edema Skin: normal turgor Neurological: no focal deficits Musculoskeletal: normal tone, normal strength, no muscle wasting, diffuse muscle atrophy ([place]) Psychiatric: normal affect, normal behavior, A&O x 3 Hosp A/P (1) Acute metabolic encephalopathy Code(s): G93.41 - METABOLIC ENCEPHALOPATHY Status: Acute (2) Urinary tract infection Status: Acute (3) Decreased oral intake Code(s): R63.8 - OTHER SYMPTOMS AND SIGNS CONCERNING FOOD AND FLUID INTAKE Status: Acute (4) Elevated troponin Code(s): R77.8 - OTHER SPECIFIED ABNORMALITIES OF PLASMA PROTEINS Status: Acute (5) Fever Code(s): R50.9 - FEVER, UNSPECIFIED Status: Acute (6) Lymphoma Status: Chronic (7) Takotsubo cardiomyopathy Code(s): I51.81 - TAKOTSUBO SYNDROME Status: Acute (8) Hypotension Status: Acute - Plan Acute metabolic encephalopathy: Initial etiology unclear. Appears to likely be due to afebrile/infectious etiology. Improved and fully resolved. Urinary tract infection: Initial urinalysis on 06/04/2020 was generally unremarkable. Repeat on 06/06/2020 revealed evidence of potential urinary tract infection. Patient was already covered empirically with appropriate antibiotics. Follow-up cultures. Febrile illness: Patient was febrile and encephalopathic on presentation. Some evidence of urinary tract infection present. Chest x-ray was clear. Covid screen sent on 06/07/2020 as she had also developed mild leukopenia. Takotsubo cardiomyopathy: Patient had slight elevation in troponins. Echocardiogram revealed EF of 20 to 25% with Takotsubo cardiomyopathy likely. LifeVest was ordered. Attempts were made to place the patient on lisinopril and Coreg at very low doses. Patient subsequently developed hypotension and these were discontinued. Hypotension: On 06/07/2020 the patient had hypotension with systolics as low as the 70s. Patient had received 1.56 mg of carvedilol. She did not receive lisinopril. She was given 500 cc normal saline bolus and her blood pressure appeared to respond nicely. Elevated troponins: Cardiology is suspicious of indicates this is a type II NSTEMI due to demand ischemia. Lymphoma: Patient is followed at [facility]. Most recent chemotherapy was early April. Appears generally stable. DVT prophylaxis: Lovenox.
[2020-06-07] MEDS ORDERED: Potassium Chloride 20 MEQ TAB PO SCH (15:45)
[2020-06-07 17:55] LABS: SARS-CoV-2 PCR by NAA Not Detected (NotDetected)
[2020-06-07] MEDS: Atorvastatin Calcium 40 MG TAB PO SCH (19:59)
[2020-06-07 20:38] LABS: Vancomycin, Trough 10.8 ug/mL
[2020-06-08 05:03] LABS: #Lymphocytes 0.5 thou/uL (1.20-3.40); #Monocytes 0.4 thou/uL (0.11-0.59); #Neutrophils 3.1 thou/uL (1.40-6.50); %Eosinophils 0.3 % (0.0-10.0); %Lymphocytes 12.6 % (21.0-51.0); %Monocytes 10.3 % (0.0-10.0); %Neutrophils 76.8 % (42.0-75.0); Hemoglobin 11.1 g/dL (12.0-16.0); Mean Corpuscular HGB CONC 34.2 g/dL (32.0-36.0); Mean Corpuscular Hemoglobin 29.8 pg (27.0-31.0); Mean Platelet Volume 8.7 fL (7.4-10.4); Platelet Count 158 thou/uL (130-400); RBC Distribution Width 12.7 % (11.5-14.5); Red Blood Cell (RBC) Count 3.74 mill/uL (4.20-5.40)
[2020-06-08 05:22] LABS: Anion Gap 11 mmol/L (10-20); BUN (Urea Nitrogen) 11 mg/dL (9.8-20.1); Calc. Creatinine Clearance 91 mL/min (70-130); Calcium 7.7 mg/dL (7.8-10.44); Carbon Dioxide 20 mmol/L (23-31); Chloride 109 mmol/L (98-107); Glucose 86 mg/dL (83-110); Potassium 3.6 mmol/L (3.5-5.1); Sodium 136 mmol/L (136-145)
[2020-06-08] MEDS: Enoxaparin Sodium 40 MG/0.4 ML SYRINGE SC SCH (09:50)
[2020-06-08] MEDS: Aspirin 81 mg Enteric Coated Tablet PO SCH (09:50)
[2020-06-08] MEDS: Vancomycin 1 GM in Premix Bag 1 BAG IVPB SCH (09:50)
[2020-06-08] MEDS: Cefepime 1 GM in Sodium Chloride 0.9% 100 ML IVPB SCH (09:55)
--- NOTE | 2020-06-08 14:09 | CON ---
DATE OF CONSULTATION: HISTORY OF PRESENT ILLNESS: Ms. Washington's blood pressure and heart rate appear stable. She is off beta-patrick therapy and MIQUEL inhibitor therapy due to hypotension yesterday. PHYSICAL EXAMINATION: VITAL SIGNS: Blood pressure 104/57, pulse 89, temp 98.5. Physical exam deferred. PERTINENT LABORATORY DATA: Hemoglobin 11.1, hematocrit 32.6. IMPRESSION: 1. Takotsubo cardiomyopathy. 2. Recent urinary tract infection. 3. Lymphoma, status post chemotherapy. RECOMMENDATIONS: Discussed case with Dr. Rock Chavis. At this point, the patient has appeared weak during hospitalization. This may be a multitude of issues. At this point, the plan will be conservative therapy. We will avoid beta-patrick therapy, MIQUEL inhibitor therapy, or ARB due to hypotension. We would recommend LifeVest given low LVEF. Recommendations to repeat her echo in one month to reassess LVEF. Again, this is consistent with takotsubo cardiomyopathy. Would anticipate improvement in her LVEF. Dr. Chavis is in agreement. We will make a followup appointment.. Job ID: [id number]
--- NOTE | 2020-06-08 14:35 | PQF ---
CLINICAL DOCUMENTATION CLARIFICATION FORM: Dear Dr. Chavis Date: 06/08/2020 Please exercise your independent, professional judgment in responding to the clarification form. Clinical indicators are provided on the bottom of this form for your review. Please check appropriate box(es): [x ] Protein Calorie Malnutrition: [ ] Mild [ x] Moderate [ ] Severe [ ] Other Malnutrition (please specify) [ ] Underweight without malnutrition [ ] Cachexia [ ] Other diagnosis [ ] Unable to determine In addition, please specify: Present on Admission (POA): [ x ] Yes [ ] No [ ] Unable to determine For continuity of documentation, please document condition throughout progress notes and discharge summary. Thank You. 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 *H&P 06/04 (Leticia): HPI: Pt had poor oral intake over the past week. *06/05 Consult (Terrell): HPI: She has had a 20-pound weight loss in the last 6 months. RISK FACTORS / RESULTS AND LOCATION IN MR *H&P 06/04 (Leticia): HPI: pmh of lymphoma on chemotherapy and hx of breast cancer. A/P: Decreased oral intake. *06/06 pn (Char) A/P: Dilated FRAME TRIMMER. Takotsubos TREATMENT / RESULTS AND LOCATION IN MR *Reactor Kettle Operator Consult ordered 06/06 *Order 06/06: Supplement Ensure TID with meals Moderate Malnutrition (in acute illness) Energy Intake: <75% of estimated energy requirement for > 7 days Weight Loss: 1-2%/1 week; 5%/ 1 month; 7.5%/3 months Other: mild body fat loss; mild muscle mass loss; mild fluid accumulation; Severe Malnutrition (in acute illness) Energy Intake: = 50% of estimated energy requirement for = 5 days Weight Loss: >2%/1 week; >5%/1 month; >7.5%/3 months Other: moderate body fat loss; moderate muscle mass loss; moderate- severe fluid accumulation; measurably reduced tax compliance manager strength Moderate Malnutrition (in chronic illness) Energy Intake: <75% of estimated energy requirement for =1 month Weight Loss: 5%/1 month; 7.5%/3 months; 10%/6 months; 20%/1 year Other: mild body fat loss; mild muscle mass loss; mild fluid accumulation Severe Malnutrition (in chronic illness) Energy Intake: =75% of estimated energy requirement for =1 month Weight Loss: >5%/1 month; >7.5%/3 months; >10%/6 months; >20%/1 year Other: severe body fat loss; severe muscle mass loss; severe fluid accumulation; measurably reduced tax compliance manager strength Thank you, Qing Hall RN, BSN [email or web address] This is a permanent part of the Medical Record [facility]
--- NOTE | 2020-06-08 17:26 | PDOC.HOSPP ---
- Subjective Encounter Date: 06/08/20 Subjective: Met with the patient a couple times today. Initially by herself and then when her daughter returned this afternoon. Patient reports that she simply has no appetite. Food does not sound appealing to her. When she does attempt to eat she feels full very promptly. In discussing this in further detail what sounds like this may have gotten worse since her diagnosis of Covid in March. She also has multiple psychosocial issues affecting her. She has the lymphoma and is receiving chemotherapy, her is debilitated and in rehab, her grandson has been in a terrible motor vehicle accident and is in critical care and dialysis, etc. - Objective Vital Signs & Weight: Vital Signs (12 hours) Temp Pulse Resp BP Pulse Ox 06/08/20 16:00 98.5 F 87 20 124/66 94 L 06/08/20 11:45 98.5 F 89 16 104/57 L 93 L 06/08/20 07:25 98.8 F 82 18 104/60 92 L Weight Admit Weight 136 lb 1.6 oz Weight 136 lb 1.6 oz I&O: 06/07/20 06/08/20 06/09/20 06:59 06:59 06:59 Intake Total 1291 2090 Output Total 600 800 Balance 691 1290 Result Diagrams: 06/08/20 04:32 06/08/20 04:32 Hospitalist ROS - Medication Medications: Active Medications Generic Name Dose Route Start Last Admin Trade Name Freq PRN Reason Stop Dose Admin Acetaminophen 650 mg 06/04/20 16:47 06/07/20 07:58 Acetaminophen 325 Mg Tab PO 650 mg Q4H PRN Administration Headache/Fever/Mild Pain (1-3) Aspirin 81 mg 06/05/20 09:00 06/08/20 09:50 Aspirin 81 Mg Enteric Coated Tablet PO 81 mg DAILY JZOEF Administration Atorvastatin Calcium 40 mg 06/04/20 21:00 06/07/20 19:59 Atorvastatin Calcium 40 Mg Tab PO 40 mg HS JOZEF Administration Enoxaparin Sodium 40 mg 06/05/20 09:00 06/08/20 09:50 Enoxaparin Sodium 40 Mg/0.4 Ml Syringe SC 40 mg 0900 JOZEF Administration Sodium Chloride 10 ml 06/06/20 09:00 06/08/20 09:50 Flush - Normal Saline 10 Ml Syringe IVF 10 ml Q12HR JOZEF Administration Hospitalist Exam Vitals: Vital Signs (12 hours) Temp Pulse Resp BP Pulse Ox 06/08/20 16:00 98.5 F 87 20 124/66 94 L 06/08/20 11:45 98.5 F 89 16 104/57 L 93 L 06/08/20 07:25 98.8 F 82 18 104/60 92 L Weight Admit Weight 136 lb 1.6 oz Weight 136 lb 1.6 oz General Appearance: NAD, awake alert General - other findings: Very thin Heart: RRR, no murmur, no gallops, no rubs, normal peripheral pulses Respiratory: CTAB, no wheezes, no rales, no ronchi, normal chest expansion, no tachypnea, normal percussion Gastrointestinal: soft, non-tender, non-distended, normal bowel sounds, no palpable masses, no hepatomegaly, no splenomegaly Extremities: no cyanosis, no clubbing, no edema Skin: normal turgor Neurological: no focal deficits Musculoskeletal: generalized weakness, diffuse muscle atrophy Psychiatric: normal affect (Possibly a little flat), normal behavior, A&O x 3 Hosp A/P (1) Acute metabolic encephalopathy Code(s): G93.41 - METABOLIC ENCEPHALOPATHY Status: Acute (2) Urinary tract infection Status: Acute (3) Decreased oral intake Code(s): R63.8 - OTHER SYMPTOMS AND SIGNS CONCERNING FOOD AND FLUID INTAKE Status: Acute (4) Elevated troponin Code(s): R77.8 - OTHER SPECIFIED ABNORMALITIES OF PLASMA PROTEINS Status: Acute (5) Fever Code(s): R50.9 - FEVER, UNSPECIFIED Status: Acute (6) Lymphoma Status: Chronic (7) Takotsubo cardiomyopathy Code(s): I51.81 - TAKOTSUBO SYNDROME Status: Acute (8) Hypotension Status: Acute - Plan Acute metabolic encephalopathy: Initial etiology unclear. Appears to likely be due to afebrile/infectious etiology. Improved and fully resolved. Urinary tract infection: Initial urinalysis on 06/04/2020 was generally unremarkable. Repeat on 06/06/2020 revealed evidence of potential urinary tract infection. Patient was already covered empirically with appropriate antibiotics. Cultures remain negative. Converted to oral Macrobid on 06/08/2020. Febrile illness: Patient was febrile and encephalopathic on presentation. Some evidence of urinary tract infection present. Chest x-ray was clear. Covid screen sent on 06/07/2020 which was negative. (Patient had Covid in March) Takotsubo cardiomyopathy: Patient had slight elevation in troponins. Echocardiogram revealed EF of 20 to 25% with Takotsubo cardiomyopathy likely. LifeVest was ordered. Attempts were made to place the patient on lisinopril and Coreg at very low doses. Patient subsequently developed hypotension and these were discontinued. Plan is for the patient have a repeat echocardiogram in 1 month. The hope is that she will resolve this and be able to come out of the LifeVest at that time. Hypotension: On 06/07/2020 the patient had hypotension with systolics as low as the 70s. Patient had received 1.56 mg of carvedilol. She did not receive lisinopril. She was given 500 cc normal saline bolus and her blood pressure appeared to re spond nicely. Blood pressure remained normal subsequent. Elevated troponins: Cardiology is suspicious of indicates this is a type II NSTEMI due to demand ischemia. Lymphoma: Patient is followed at [facility]. Most recent chemotherapy was early April. Appears generally stable. Anorexia: This is been present for a number of weeks. Seems to have gotten somewhat worse in the last 3 weeks. Suspect this is multifactorial. Patient has a lot of psychosocial stressors which may be causing some degree of depression. I believe she also had compromised taste and smell following her Covid. She also describes early satiety. She has no abdominal pain associated with this otherwise. Fairly severe and that the patient has significant protein malnutrition (moderate). Long discussion with the patient and her daughter. We will go ahead and ask GI to see her while she is here. We will start Remeron 15 mg p.o. nightly. We will likely need to titrate that up to 30 mg. May need to consider Marinol as a second line agent. Reviewed with the patient's daughter mechanisms for trying to stimulate appetite somewhat through increased flavoring of foods yet trying to avoid salt. Discussed with the patient need to eat frequently throughout the day and focus on high nutritional value foods with protein. Moderate protein calorie malnutrition: As above. DVT prophylaxis: Lovenox.
[2020-06-08] MEDS: Nitrofurantoin Monohyd/M-Cryst 100 MG CAP PO SCH (21:09)
[2020-06-08] MEDS: Acetaminophen 325 MG TAB PO PRN (21:09)
[2020-06-08] MEDS: Mirtazapine 15 MG TAB PO SCH (21:09)
[2020-06-08] MEDS: Atorvastatin Calcium 40 MG TAB PO SCH (21:09)
--- NOTE | 2020-06-09 00:15 | CON ---
DATE OF CONSULTATION: 06/08/2020 CHIEF COMPLAINT: Not eating. HISTORY OF PRESENT ILLNESS: Ms. Washington is an 79-year-old woman who was admitted on 06/04/2020 with altered mental status and poor oral intake. She has been on chemotherapy recently for lymphoma. She had COVID pneumonia back in March. She was found to have takotsubo cardiomyopathy and is awaiting placement of a Life Vest. Patient reports over the last couple of weeks, she has had no appetite, has not been eating. She thinks she has lost around 20 pounds. She has had no nausea or vomiting or abdominal pain with this. She does not recall if she has had a colonoscopy before. Currently, in fact, she is unable to contribute a whole lot of the history and appears to be having some sundowning. She does not recall if she has had other medical problems or surgeries in her lifetime. She is oriented x3, but I am unable to provide any significant clinical history. She just request to be left alone. PAST MEDICAL HISTORY: From the chart as the patient is unable to contribute. She has a history of lymphoma, for which she was taking chemotherapy recently. She has had breast cancer. PAST SURGICAL HISTORY: Negative. FAMILY HISTORY: Negative for GI malignancy. SOCIAL HISTORY: Apparently is positive for alcohol use. According to the H and P, no smoking or drugs. ALLERGIES: PENICILLIN. MEDICATIONS: Currently; 1. Enoxaparin. 2. Aspirin. 3. Atorvastatin. REVIEW OF SYSTEMS: Negative x10 systems reviewed except as stated in history of present illness. PHYSICAL EXAMINATION: VITAL SIGNS: Temperature 101.3, pulse 93, oxygen saturation 90%, blood pressure 127/66. GENERAL: She is in no acute distress. She has flat affect. HEENT: Eyes have no scleral icterus. Oropharynx is clear without lesions. No cervical or supraclavicular lymphadenopathy. LUNGS: Clear to auscultation bilaterally. HEART: Regular rate and rhythm without murmur. ABDOMEN: Soft, nontender, and nondistended. Bowel sounds are present. EXTREMITIES: No lower extremity edema. LABORATORY DATA: Creatinine 0.84, bilirubin 1.0, AST 28, ALT 10, alkaline phosphatase 47, albumin 3.3, lipase 53. White blood cell count 4.0, hemoglobin 11.1, platelets 158. IMPRESSION: 1. Anorexia with loss of appetite and protein calorie malnutrition with muscle wasting. She has a new diagnosis of takotsubo cardiomyopathy and is awaiting LifeVest placement. I would hold off endoscopy at this time given the acute cardiomyopathy that should be reversible or self-limited. We will allow her to see how she responds with Remeron. 2. Lymphoma, recently treated with chemotherapy. 3. Takotsubo cardiomyopathy. 4. Normocytic anemia. RECOMMENDATIONS: 1. We will see how she responds to appetite stimulant with Remeron. 2. Start multiple vitamin and thiamine. I will check B12 and folate, thiamine levels, and iron studies. 3. Continue dietary supplements with Ensure or Boost as she tolerates. 4. Follow up in GI Clinic. I will sign off for now. Please call if GI can be of assistance. Job ID: [id number]
[2020-06-09 05:17] LABS: #Lymphocytes 0.4 thou/uL (1.20-3.40); #Monocytes 0.4 thou/uL (0.11-0.59); #Neutrophils 3.9 thou/uL (1.40-6.50); %Basophils 0.9 % (0.0-1.0); %Eosinophils 0.6 % (0.0-10.0); %Lymphocytes 7.7 % (21.0-51.0); %Monocytes 8.7 % (0.0-10.0); %Neutrophils 82.1 % (42.0-75.0); Hemoglobin 11.9 g/dL (12.0-16.0); Mean Corpuscular HGB CONC 33.9 g/dL (32.0-36.0); Mean Corpuscular Hemoglobin 29.5 pg (27.0-31.0); Mean Corpuscular Volume 86.9 fL (78.0-98.0); Mean Platelet Volume 8.6 fL (7.4-10.4); Platelet Count 160 thou/uL (130-400); RBC Distribution Width 12.6 % (11.5-14.5); Red Blood Cell (RBC) Count 4.05 mill/uL (4.20-5.40); White Blood Cell (WBC) Count 4.7 thou/uL (4.8-10.8)
[2020-06-09 05:41] LABS: Anion Gap 12 mmol/L (10-20); BUN (Urea Nitrogen) 7 mg/dL (9.8-20.1); Calc. Creatinine Clearance 97 mL/min (70-130); Calcium 7.9 mg/dL (7.8-10.44); Carbon Dioxide 20 mmol/L (23-31); Chloride 108 mmol/L (98-107); Glucose 78 mg/dL (83-110); Iron 14 ug/dL (50-170); Iron Binding Capacity, Total 124 mcg/dL (265-497); Potassium 3.4 mmol/L (3.5-5.1); Sodium 137 mmol/L (136-145)
[2020-06-09 06:06] LABS: Ferritin 854.23 ng/mL (10-291)
[2020-06-09] MEDS: Thiamine 100 MG TAB PO SCH (09:29)
[2020-06-09] MEDS: Aspirin 81 mg Enteric Coated Tablet PO SCH (09:29)
[2020-06-09] MEDS: Multivit, Therapeutic 1 TAB PO SCH (09:29)
[2020-06-09] MEDS: Nitrofurantoin Monohyd/M-Cryst 100 MG CAP PO SCH (09:30)
[2020-06-09] MEDS: Enoxaparin Sodium 40 MG/0.4 ML SYRINGE SC SCH (09:30)
--- NOTE | 2020-06-09 10:06 | RAD ---
EXAM: Single view of the chest HISTORY: Shortness of breath COMPARISON: 06/04/2020 FINDINGS: Single view of the chest shows a normal sized cardiomediastinal silhouette. Stable increas ed interstitial markings are present. There is no evidence of consolidation, mass, or pleural effusion. No acute osseous abnormality. A calcification projects over the lateral right breast. IMPRESSION: No evidence of acute cardiopulmonary disease
[2020-06-09] MEDS ORDERED: Iopamidol-370 76% 500 ML 1 ML ONE (10:34)
[2020-06-09] MEDS: Acetaminophen 325 MG TAB PO PRN (13:14)
[2020-06-09] MEDS: Cefepime 1 GM in Sodium Chloride 0.9% 100 ML IVPB SCH (14:47)
[2020-06-09] MEDS: Sodium Chloride 0.9% 1,000 ML IV SCH ×2 (14:49→21:14)
--- NOTE | 2020-06-09 16:50 | PDOC.HOSPP ---
- Subjective Encounter Date: 06/09/20 Subjective: Patient reports she generally does not feel well today. She cannot articulate more specific reason why. Simply says she does not have any energy. - Objective Vital Signs & Weight: Vital Signs (12 hours) Temp Pulse Pulse Pulse Resp BP BP 06/09/20 16:25 97.8 F 82 20 06/09/20 11:34 92 93 129/64 114/63 06/09/20 11:25 99.7 F H 95 21 H 06/09/20 08:55 98.7 F 93 16 BP Pulse Ox Pulse Ox Pulse Ox 06/09/20 16:25 85/48 L 93 L 06/09/20 11:34 93 L 90 L 06/09/20 11:25 112/61 95 06/09/20 08:55 118/61 95 Weight Admit Weight 136 lb 1.6 oz Weight 136 lb 1.6 oz I&O: 06/08/20 06/09/20 06/10/20 06:59 06:59 06:59 Intake Total 2090 240 Output Total 800 Balance 1290 240 Result Diagrams: 06/09/20 05:07 06/09/20 05:07 Hospitalist ROS - Medication Medications: Active Medications Generic Name Dose Route Start Last Admin Trade Name Freq PRN Reason Stop Dose Admin Acetaminophen 650 mg 06/04/20 16:47 06/09/20 13:14 Acetaminophen 325 Mg Tab PO 650 mg Q4H PRN Administration Headache/Fever/Mild Pain (1-3) Aspirin 81 mg 06/05/20 09:00 06/09/20 09:29 Aspirin 81 Mg Enteric Coated Tablet PO 81 mg DAILY JOZEF Administration Atorvastatin Calcium 40 mg 06/04/20 21:00 06/08/20 21:09 Atorvastatin Calcium 40 Mg Tab PO 40 mg HS JOZEF Administration Enoxaparin Sodium 40 mg 06/05/20 09:00 06/09/20 09:30 Enoxaparin Sodium 40 Mg/0.4 Ml Syringe SC 40 mg 0900 JOZEF Administration Cefepime HCl 1 gm/ Sodium 100 mls @ 200 mls/hr 06/09/20 14:00 06/09/20 14:47 Chloride IVPB 100 mls 0200,1400 JOZEF Administration Sodium Chloride 1,000 mls @ 75 mls/hr 06/09/20 14:30 06/09/20 14:49 Normal Saline 0.9% IV 1,000 mls .[id number] JOZEF Administration Mirtazapine 15 mg 06/08/20 21:00 06/08/20 21:09 Mirtazapine 15 Mg Tab PO 15 mg HS JOZEF Administration Multivitamins 1 tab 06/09/20 09:00 06/09/20 09:29 Multivit, Therapeutic 1 Tab PO 1 tab DAILY JOZEF Administration Sodium Chloride 10 ml 06/06/20 09:00 06/09/20 09:30 Flush - Normal Saline 10 Ml Syringe IVF 10 ml Q12HR JOZEF Administration Thiamine HCl 100 mg 06/09/20 09:00 06/09/20 09:29 Thiamine 100 Mg Tab PO 100 mg DAILY JOZEF Administration Hospitalist Exam Vitals: Vital Signs (12 hours) Temp Pulse Pulse Pulse Resp BP BP 06/09/20 16:25 97.8 F 82 20 06/09/20 11:34 92 93 129/64 114/63 06/09/20 11:25 99.7 F H 95 21 H 06/09/20 08:55 98.7 F 93 16 BP Pulse Ox Pulse Ox Pulse Ox 06/09/20 16:25 85/48 L 93 L 06/09/20 11:34 93 L 90 L 06/09/20 11:25 112/61 95 06/09/20 08:55 118/61 95 Weight Admit Weight 136 lb 1.6 oz Weight 136 lb 1.6 oz General Appearance: NAD, awake alert Heart: RRR, no murmur, no gallops, no rubs, normal peripheral pulses Respiratory: CTAB, no wheezes, no rales, no ronchi, normal chest expansion, no tachypnea, normal percussion Gastrointestinal: soft, non-tender, non-distended, normal bowel sounds, no palpable masses, no hepatomegaly, no splenomegaly, no bruit Extremities: no cyanosis, no clubbing, no edema Skin: normal turgor Neurological: no focal deficits Musculoskeletal: generalized weakness, diffuse muscle atrophy (Severe) Psychiatric: normal behavior, A&O x 3, flat affect, lethargic (Mildly) Hosp A/P (1) Acute metabolic encephalopathy Code(s): G93.41 - METABOLIC ENCEPHALOPATHY Status: Acute (2) Urinary tract infection Status: Acute (3) Decreased oral intake Code(s): R63.8 - OTHER SYMPTOMS AND SIGNS CONCERNING FOOD AND FLUID INTAKE Status: Acute (4) Elevated troponin Code(s): R77.8 - OTHER SPECIFIED ABNORMALITIES OF PLASMA PROTEINS Status: Acute (5) Fever Code(s): R50.9 - FEVER, UNSPECIFIED Status: Acute (6) Lymphoma Status: Chronic (7) Takotsubo cardiomyopathy Code(s): I51.81 - TAKOTSUBO SYNDROME Status: Acute (8) Hypotension Status: Acute - Plan Acute metabolic encephalopathy: Initial etiology unclear. Appears to likely be due to a febrile/infectious etiology. Improved and fully resolved. Possible urinary tract infection: Initial urinalysis on 06/04/2020 was generally unremarkable. Repeat on 06/06/2020 revealed evidence of potential urinary tract infection. Patient was already covered empirically with appropriate antibiotics. Blood cultures remain negative. Confirmed with the lab that there was not a urine culture reflexed likely due to too many epithelial cells. Converted from cefepime and vancomycin to oral Macrobid on 06/08/2020. Patient became febrile again on the evening of 06/08/2020. Repeat urinalysis ordered. Febrile illness: Patient was febrile and encephalopathic on presentation. Some evidence of urinary tract infection present. Chest x-ray was clear. Covid screen sent on 06/07/2020 which was negative. (Patient had Covid in March) Recurrent fever on 06/09/2020 with a negative repeat chest x-ray. Patient has no specific symptoms but simply feels generally lethargic. Blood cultures were repeated. Cefepime resumed (she did not miss more than 1 dose). I have left a message with her oncologist at [facility]. I do not believe she has significant lymphoma burden at this point. She has no physical exam findings of lymphadenopathy. Possible she could have some fever related to lymphoma but without significant tumor burden this is less likely. Consult ID. Takotsubo cardiomyopathy: Patient had slight elevation in troponins. Echocardiogram revealed EF of 20 to 25% with Takotsubo cardiomyopathy likely. LifeVest was ordered. Attempts were made to place the patient on lisinopril and Coreg at very low doses. Patient subsequently developed hypotension and these were discontinued. Plan is for the patient have a repeat echocardiogram in 1 month. The hope is that she will resolve this and be able to come out of the LifeVest at that time. Hypotension: On 06/07/2020 the patient had hypotension with systolics as low as the 70s. Patient had received 1.56 mg of carvedilol. She did not receive lisinopril. She was given 500 cc normal saline bolus and her blood pressure appeared to respond nicely. Blood pressure remained normal subsequent until being a bit low again on 06/09/2020. Patient will receive an additional fluid bolus. Elevated troponins: Cardiology is suspicious of indicates this is a type II NSTEMI due to demand ischemia. Lymphoma: Patient is followed at [facility]. Most recent chemotherapy was early April. Appears generally stable. 06/09/2020 a call was placed to her oncologist Dr. Cristian Benitez ([phone], option #[phone]) Need to discuss her fever and her severe anorexia. Anorexia: This is been present for a number of weeks. Seems to have gotten somewhat worse in the last 3 weeks. Suspect this is multifactorial. Patient has a lot of psychosocial stressors which may be causing some degree of depression. I believe she also had compromised taste and smell following her Covid. She also describes early satiety. She has no abdominal pain associated with this otherwise. Fairly severe and that the patient has significant protein malnutrition (moderate). Long discussion with the patient and her daughter. We will start Remeron 15 mg p.o. nightly. We will likely need to titrate that up to 30 mg. May need to consider Marinol as a second line agent. Reviewed with the patient's daughter mechanisms for trying to stimulate appetite somewhat through increased flavoring of foods yet trying to avoid salt. Discussed with the patient need to eat frequently throughout the day and focus on high nutritional value foods with protein. Appreciate GI consult. Generally agreed with current recommendations. Given her cardiomyopathy consideration for any type of further endoscopic investigation will be deferred. Moderate protein calorie malnutrition: As above. DVT prophylaxis: Lovenox.
[2020-06-09] MEDS ORDERED: Sodium Chloride 0.9% 500 ML IV SCH (17:00)
[2020-06-09 20:50] LABS: SARS-CoV-2 IgG Ab Non-Reactive (NonReactive); SARS-CoV-2 IgG Index 0.02 S/CO (< 1.40)
[2020-06-09] MEDS: Mirtazapine 15 MG TAB PO SCH (21:13)
[2020-06-09] MEDS: Atorvastatin Calcium 40 MG TAB PO SCH (21:13)
--- NOTE | 2020-06-09 21:14 | CT ---
CT OF THE CHEST, ABDOMEN AND PELVIS WITH IV CONTRAST INDICATION: 79-year-old female with history of lymphoma and fever of unknown origin COMPARISON: CT of the chest, abdomen and pelvis from [facility] dated May 30, 2019. FINDINGS: CHEST: Lungs: There are new peripheral interstitial and groundglass airspace opacity seen scattered througho ut both lungs suspicious for an atypical pneumonia. Findings can be seen with airspace edema; however, the pattern is felt to be less likely. Pleural space: There are tiny bilateral pleural effusions. There is mild cardiomegaly. Mediastinum: There is a small hiatal hernia. There is been significant improvement in the mediastinal lymphadenopathy. Precarinal lymph node previously measuring 1.2 cm now measures 11 mm. There is improvement of the additional enlarged lymph nodes within the mediastinum, cullen and axillary regions. Previous enlarged left axillary lymph node measuring 2.2 cm now measures 8 mm. There is contrast within the esophagus. There is mild cardiomegaly. Axilla: Improvement in the bilateral axillary lymphadenopathy. Calcification involving the lateral r ight breast is stable. ABDOMEN: Liver: Hepatic cysts are similar appearing. Gallbladder: Normal appearing. Pancreas: Normal. Adrenal glands: Normal. Spleen: There is improvement in splenomegaly. The spleen now measures 11.3 cm in length previously me asured 15.4 cm Kidneys and ureters: Normal. No hydronephrosis. Vasculature: There are moderate vascular calcifications seen involving the visualized vasculature. Lymph nodes:There is extensive improvement in the lymphadenopathy seen within the upper abdomen, retr operitoneum and pelvis. The confluent adenopathy surrounding the aorta is markedly reduced in size with some residual intermediate to hypodensity soft tissue prominence surrounding the aorta and IVC. The largest lymph node seen adjacent to the left iliac fracture previously measured 11.7 cm in length now measures 6.2 x 2.5 cm. Free fluid in abdomen:No free fluid is evident. PELVIS: Small and large bowel: There are scattered colonic diverticula without evidence of active diverticuli tis. Small bowel is of normal caliber. There is postsurgical change of a gastroplasty. Appendix:Normal Bladder: Normal. Rectal and perirectal soft tissues:Normal. Reproductive structures: Normal. Free fluid in pelvis: Mild free fluid Lymphadenopathy pelvis: As above Osseous structures: There is diffuse osteopenia. No suspicious osteolytic or osteoblastic lesion is i dentified. There is postprocedural change of a right rotator cuff repair. There is an interval superior endplate compression deformity of L5 of undetermined chronicity. There is scattered degener ative and osteoarthritic changes. Soft tissues:There is mild anasarca IMPRESSION: 1. Significant improvement in the extensive lymphadenopathy and splenomegaly seen involving the chest , abdomen and pelvis consistent with response to therapy. 2. Patchy areas of peripheral interstitial and groundglass airspace opacity are suspicious for an aty pical pneumonia. Recommend correlation with Covid testing. 3. Interval superior endplate compression deformity of L5 of undetermined chronicity. 4. Contrast within the esophagus may reflect reflux or dysmotility. There is postprocedural change of a gastroplasty. There is a small hiatal hernia. 5. Small bilateral pleural effusions, mild free fluid in the pelvis and mild anasarca may reflect vol ume overload or mild CHF.
--- NOTE | 2020-06-09 21:19 | CON ---
DATE OF CONSULTATION: 06/09/2020 REASON: Fever. 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 The patient has been managed at [facility] over the past few months. Initially treated with Rituxan and then converted to obinutuzumab with better response reportedly. The patient had a PET scan few months ago, which showed significant response. In May 06, her significant other, I think was a family member, was diagnosed with COVID-19 and she one or two days later was tested positive and she was given monoclonal antibody at [facility]. After the infusion, she felt well and did not have any issues, but then over the past few weeks has developed worsening weakness and some confusional state and decreased oral intake with significant weight loss, some chills but no documented fever. Did not have any headaches, no visual symptoms and she described that she has this weird taste in her mouth and no cough, mild dyspnea, no chest pain, no abdominal pain. She did develop some cognitive issues, memory impairment, and some confusional state. No extremity symptoms. No seizure activity. PAST MEDICAL HISTORY: Breast cancer in remission after radiation and lumpectomy many years ago; history of large cell lymphoma, high-grade, treated with Rituxan and then another anti-CD20 monoclonal antibody. She had recently been diagnosed with COVID-19, was treated with monoclonal antibodies and seems to have recovered. The COVID-19 was diagnosed on May 09, so it has been more than a month since the original diagnosis. The patient had lymph node biopsy by Dr. Nava at the beginning of 2019. FAMILY HISTORY: Noncontributory. SOCIAL HISTORY: Never smoker. Drinks occasionally. She lives independently with her . 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 ALLERGY HISTORY: Penicillins with rash. CURRENT MEDICATIONS: 1. Cefepime. 2. Aspirin. 3. Lipitor. 4. Lovenox. 5. Remeron. 6. Thiamine. PHYSICAL EXAMINATION: VITAL SIGNS: Since admission on the , temp max was 102 and then she had 101 on June 08 and that is what prompted the consultation. She is now 85/48, heart rate 82, respirations 20, O2 sat 93-95. SKIN: The patient has a peripheral IV access. No areas of skin breakdown. 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 Ocular movements are conjugate. Sclerae are white. Pupils are equal. No lymphadenopathy. Oral cavity with white coating on dorsum of her tongue. There is a very faint speck of white exudate at the back suggestive of Lisa species infection. Oral mucosa is normal otherwise. NECK: Supple. No jugular vein distention. LUNGS: Symmetric air entry with faint fine inspiratory crackles at the bases. HEART: S1, S2, regular rate. ABDOMEN: Soft, not distended. No organomegaly. Question of bladder distention. EXTREMITIES: No joint inflammatory activity. Muscle wasting in lower extremities. No edema. Pulses 1+ in dorsalis pedis. Moves extremities equally. NEUROLOGICAL: She is awake, knows her name, little bit confused. LABORATORY DATA: White cell count 7.7 down to 4.7, hemoglobin 11.9, platelets 160, 82% neutrophils. Sodium 135, creatinine 0.57. Troponin 0.756. Liver profile normal. Albumin was 3.3, globulin 3.4. The urinalysis on admission was 0-3 wbc's and now it has been repeated, it was 21-50. SARS-CoV-2 RNA PCR not detected. Two sets of blood culture, no growth 48 hours. IMAGING STUDIES: Include basically one chest x-ray from June 04 without acute process. A second chest x-ray on June 09 with no evidence of acute cardiopulmonary disease. ASSESSMENT: 1. Large cell lymphoma with chemotherapy at [facility], initially with Rituxan and then transition to obinutuzumab with significant response. Treatment had to be interrupted because of COVID-19. 2. COVID-19 diagnosed at the end of April with treatment with monoclonal antibody and no major respiratory illnesses identified since, never had to be admitted for this indication. 3. Progressive weakness, weight loss. 4. Cardiomyopathy with EF 20% to 25%, which is a new development felt by Cardiology that possibly represent takotsubo cardiomyopathy. This is a presumptive diagnosis. 5. Fever which has developed after admission but may have been present before admission. DISCUSSION: The differential diagnosis includes opportunistic infections associated with lymphoma treatment including fungal infection such as Cryptococcus neoformans, Pneumocystis, histoplasmosis, or persistence of COVID-19 (less likely in view of the negative PCR), versus recrudescence of lymphoma with fever secondary to it. The possibility of [employer] MANAGER involvement is considered and may need a CSF evaluation depending on the findings of the workup that we are going to order. We will start with cryptococcus antigen, histoplasma antigen, and Fungitell assay. We will submit order for CT of chest and abdomen and pelvis with contrast. May need a Karius test as well depending on the results of the above. Monitor blood cultures. Check her postvoid residual measurement since she seems to have distended bladder on physical exam. Job ID: [id number] [facility]
[2020-06-10] MEDS: Cefepime 1 GM in Sodium Chloride 0.9% 100 ML IVPB SCH ×2 (03:00→13:45)
[2020-06-10] MEDS: Acetaminophen 325 MG TAB PO PRN (03:37)
[2020-06-10 04:35] LABS: #Basophils 0.1 thou/uL (0.0-0.2); #Lymphocytes 0.5 thou/uL (1.20-3.40); #Monocytes 0.4 thou/uL (0.11-0.59); %Basophils 1.3 % (0.0-1.0); %Eosinophils 0.4 % (0.0-10.0); %Lymphocytes 9.9 % (21.0-51.0); %Monocytes 8.9 % (0.0-10.0); %Neutrophils 79.6 % (42.0-75.0); Hemoglobin 11.8 g/dL (12.0-16.0); Mean Corpuscular HGB CONC 34.2 g/dL (32.0-36.0); Mean Corpuscular Hemoglobin 29.9 pg (27.0-31.0); Mean Corpuscular Volume 87.3 fL (78.0-98.0); Mean Platelet Volume 8.9 fL (7.4-10.4); Platelet Count 176 thou/uL (130-400); RBC Distribution Width 12.6 % (11.5-14.5); Red Blood Cell (RBC) Count 3.95 mill/uL (4.20-5.40)
[2020-06-10 04:48] LABS: Anion Gap 11 mmol/L (10-20); BUN (Urea Nitrogen) 8 mg/dL (9.8-20.1); Calc. Creatinine Clearance 91 mL/min (70-130); Calcium 7.6 mg/dL (7.8-10.44); Carbon Dioxide 23 mmol/L (23-31); Chloride 105 mmol/L (98-107); Glucose 84 mg/dL (83-110); Sodium 136 mmol/L (136-145)
[2020-06-10] MEDS: Multivit, Therapeutic 1 TAB PO SCH (08:20)
[2020-06-10] MEDS: Enoxaparin Sodium 40 MG/0.4 ML SYRINGE SC SCH (08:20)
[2020-06-10] MEDS: Thiamine 100 MG TAB PO SCH (08:20)
[2020-06-10] MEDS: Aspirin 81 mg Enteric Coated Tablet PO SCH (08:20)
[2020-06-10 08:55] LABS: Bilirubin Negative (Negative); Blood, Urine Small (Negative); Glucose, Urine (Dipstick) Negative (Negative); Ketone, Urine Trace mg/dL (Negative); Leukocyte Trace (Negative); Nitrite Negative (Negative); Protein, Urine (Dipstick) Trace mg/dL (Neg-Trace); Specific Gravity, Urine 1.015 (1.005-1.030); Urobilinogen 0.2 mg/dL (Less than 2); pH, Urine 5.5 (5.0-9.0)
[2020-06-10 08:57] LABS: Clarity Extra Turbid (Clear)
[2020-06-10 09:09] LABS: Bacteria/HPF 3+ HPF (None Seen); Transitional Epithelial 0-3 HPF (None Seen)
[2020-06-10 09:11] LABS: Urine Culture Reflex No No
[2020-06-10] MEDS: Sodium Chloride 0.9% 1,000 ML IV SCH ×2 (11:28→11:53)
--- NOTE | 2020-06-10 15:51 | PDOC.HOSPP ---
- Subjective Encounter Date: 06/10/20 Subjective: Patient reports generally she feels about the same. To my exam she had not had a bowel movement reported in over 24 hours. She did eat a few bites of her lunch. She says she feels like she is feeling a little more like eating each day. When I pressed her on why she did not eat another bite of food she said she thought she might gag if she tried. - Objective Vital Signs & Weight: Vital Signs (12 hours) Temp Pulse Resp BP Pulse Ox 06/10/20 11:59 98.7 F 82 16 106/57 L 93 L 06/10/20 08:17 99.7 F H 90 18 109/54 L 93 L 06/10/20 08:00 93 L Weight Admit Weight 136 lb 1.6 oz Weight 136 lb 1.6 oz I&O: 06/09/20 06/10/20 06/11/20 06:59 06:59 06:59 Intake Total 240 2760 Output Total 750 Balance 240 2760 -750 Result Diagrams: 06/10/20 03:59 06/10/20 03:59 Hospitalist ROS - Medication Medications: Active Medications Generic Name Dose Route Start Last Admin Trade Name Freq PRN Reason Stop Dose Admin Acetaminophen 650 mg 06/04/20 16:47 06/10/20 03:37 Acetaminophen 325 Mg Tab PO 650 mg Q4H PRN Administration Headache/Fever/Mild Pain (1-3) Aspirin 81 mg 06/05/20 09:00 06/10/20 08:20 Aspirin 81 Mg Enteric Coated Tablet PO 81 mg DAILY JOZEF Administration Atorvastatin Calcium 40 mg 06/04/20 21:00 06/09/20 21:13 Atorvastatin Calcium 40 Mg Tab PO 40 mg HS JOZEF Administration Enoxaparin Sodium 40 mg 06/05/20 09:00 06/10/20 08:20 Enoxaparin Sodium 40 Mg/0.4 Ml Syringe SC 40 mg 0900 JOZEF Administration Cefepime HCl 1 gm/ Sodium 100 mls @ 200 mls/hr 06/09/20 14:00 06/10/20 13:45 Chloride IVPB 100 mls 0200,1400 JOZEF Administration Sodium Chloride 1,000 mls @ 75 mls/hr 06/09/20 14:30 06/10/20 11:53 Normal Saline 0.9% IV 1,000 mls .[id number] JOZEF Administration Mirtazapine 15 mg 06/08/20 21:00 06/09/20 21:13 Mirtazapine 15 Mg Tab PO 15 mg HS JOZEF Administration Multivitamins 1 tab 06/09/20 09:00 06/10/20 08:20 Multivit, Therapeutic 1 Tab PO 1 tab DAILY JOZEF Administration Sodium Chloride 10 ml 06/06/20 09:00 06/10/20 08:20 Flush - Normal Saline 10 Ml Syringe IVF Not Given Q12HR [facility] Thiamine HCl 100 mg 06/09/20 09:00 06/10/20 08:20 Thiamine 100 Mg Tab PO 100 mg DAILY JOZEF Administration Hospitalist Exam Vitals: Vital Signs (12 hours) Temp Pulse Resp BP Pulse Ox 06/10/20 11:59 98.7 F 82 16 106/57 L 93 L 06/10/20 08:17 99.7 F H 90 18 109/54 L 93 L 06/10/20 08:00 93 L Weight Admit Weight 136 lb 1.6 oz Weight 136 lb 1.6 oz General Appearance: NAD, awake alert Heart: RRR, no murmur, no gallops, no rubs, normal peripheral pulses Respiratory: CTAB, no wheezes, no rales, no ronchi, normal chest expansion, no tachypnea, normal percussion Gastrointestinal: soft, non-tender, non-distended, normal bowel sounds, no palpable masses, no hepatomegaly, no splenomegaly, no bruit Extremities: no cyanosis, no clubbing, no edema Skin: normal turgor Neurological: no focal deficits Musculoskeletal: generalized weakness, diffuse muscle atrophy Psychiatric: normal affect, normal behavior Hosp A/P (1) Acute metabolic encephalopathy Code(s): G93.41 - METABOLIC ENCEPHALOPATHY Status: Acute (2) Urinary tract infection Status: Acute (3) Decreased oral intake Code(s): R63.8 - OTHER SYMPTOMS AND SIGNS CONCERNING FOOD AND FLUID INTAKE Status: Acute (4) Elevated troponin Code(s): R77.8 - OTHER SPECIFIED ABNORMALITIES OF PLASMA PROTEINS Status: Acute (5) Fever Code(s): R50.9 - FEVER, UNSPECIFIED Status: Acute (6) Lymphoma Status: Chronic (7) Takotsubo cardiomyopathy Code(s): I51.81 - TAKOTSUBO SYNDROME Status: Acute (8) Hypotension Status: Acute - Plan Acute metabolic encephalopathy: Initial etiology unclear. Appears to likely be due to a febrile/infectious etiology. Improved and fully resolved. Possible urinary tract infection: Initial urinalysis on 06/04/2020 was generally unremarkable. Repeat on 06/06/2020 revealed evidence of potential urinary tract infection. Patient was already covered empirically with appropriate antibiotics. Blood cultures remain negative. Confirmed with the lab that there was not a urine culture reflexed likely due to too many epithelial cells. Converted from cefepime and vancomycin to oral Macrobid on 06/08/2020. Patient became febrile again on the evening of 06/08/2020. Repeat urinalysis ordered with again just equivocal findings. Febrile illness: Patient was febrile and encephalopathic on presentation. Some evidence of urinary tract infection present. Chest x-ray was clear. Covid screen sent on 06/07/2020 which was negative. (Patient had Covid in March) Recurrent fever on 06/09/2020 with a negative repeat chest x-ray. Patient has no specific symptoms but simply feels generally lethargic. Blood cultures were repeated. Cefepime resumed (she did not miss more than 1 dose). I have left a message with her oncologist at [facility], [place]. I do not believe she has significant lymphoma burden at this point. She has no physical exam findings of lymphadenopathy. Possible she could have some fever related to lymphoma but without significant tumor burden this is less likely. ID consulted. CT abdomen and pelvis did not reveal any specific source of infection. Did reveal significant improvement in her overall tumor burden and splenomegaly. There was some dysmotility in the esophagus. Cryptococcal antigen was also negative. Takotsubo cardiomyopathy: Patient had slight elevation in troponins. Echocardiogram revealed EF of 20 to 25% with Takotsubo cardiomyopathy likely. LifeVest was ordered. Attempts were made to place the patient on lisinopril and Coreg at very low doses. Patient subsequently developed hypotension and these were discontinued. Plan is for the patient have a repeat echocardiogram in 1 month. The hope is that she will resolve this and be able to come out of the LifeVest at that time. Hypotension: On 06/07/2020 the patient had hypotension with systolics as low as the 70s. Patient had received 1.56 mg of carvedilol. She did not receive lisinopril. She was given 500 cc normal saline bolus and her blood pressure appeared to respond nicely. Blood pressure remained normal subsequent until being a bit low again on 06/09/2020. Patient will receive an additional fluid bolus. Elevated troponins: Cardiology is suspicious of indicates this is a type II NSTEMI due to demand ischemia. Lymphoma: Patient is followed at [facility], [place]. Most recent chemotherapy was early April. Appears generally stable. 06/09/2020 a call was placed to her oncologist Dr. Cristian Benitez ([phone], option #4) Need to discuss her fever and her severe anorexia. 06/10/2020 have not heard back from her oncologist. Anorexia: This is been present for a number of weeks. Seems to have gotten somewhat worse in the last 3 weeks. Suspect this is multifactorial. Patient has a lot of psychosocial stressors which may be causing some degree of depression. I believe she also had compromised taste and smell following her Covid. She also describes early satiety. She has no abdominal pain associated with this otherwise. Fairly severe and that the patient has significant protein malnutrition (moderate). Long discussion with the patient and her daughter. We will start Remeron 15 mg p.o. nightly. We will likely need to titrate that up to 30 mg. May need to consider Marinol as a second line agent. Reviewed with the patient's daughter mechanisms for trying to stimulate appetite somewhat through increased flavoring of foods yet trying to avoid salt. Discussed with the patient need to eat frequently throughout the day and focus on high nutritional value foods with protein. Appreciate GI consult. Generally agreed with current recommendations. Given her cardiomyopathy consideration for any type of further endoscopic investigation will be deferred. With some evidence of esophageal dysmotility on her CT scan. Patient has also had a gastric sleeve performed which could be causing some additional reflux concerns. Reviewed with GI the recommendations were for upright eating posture and consideration of full liquid diet. Moderate protein calorie malnutrition: As above. Possible urine retention: Patient had a palpable bladder when ID examined her. Today ultrasound did reveal 450 cc in the bladder. Post void residual was 150 cc. In light of her recurring fever will get urology consult. DVT prophylaxis: Lovenox.
[2020-06-10] MEDS ORDERED: Potassium Chloride 40 MEQ in Sodium Chloride 0.9% 250 ML 250 ML IVPB SCH (16:00)
[2020-06-10] MEDS: D5 1/2 NS w/20 mEq KCL 1,000 ML IV SCH (17:38)
--- NOTE | 2020-06-10 18:15 | PRG ---
DATE OF SERVICE: 06/10/2020 SUBJECTIVE: The patient is about the same, not eating anything and still having low-grade temperature elevation, sometimes a little bit higher. Does not have a headache. Not much of a cough. No abdominal pain. She is having diarrhea and a C difficile test has been submitted. OBJECTIVE: VITAL SIGNS: T-max 101.4 at 3:30 in the morning, she is now 98.5. BP 120/70, heart rate 91, respirations 18, and O2 saturation 96%. GENERAL: She appears unwell. She is awake and able to talk. Respiratory rate is more like 30 times a minute, I was able to count for 30 seconds, and she is not breathing 18 times a minute. It is more like 30 to keep O2 saturations anywhere from 93% to 96%, so she is having to work extra to maintain her O2 saturations. LUNGS: Still with bilateral inspiratory crackles. HERAT: S1 and S2, regular rate. ABDOMEN: Soft, not distended. EXTREMITIES: Moves extremities equally. LABORATORY DATA: White cell count 5.0, hemoglobin 11.6, platelets 176. Creatinine 0.48. SARS-CoV-2 IgG antibody index was 0.02. This is after 4 weeks from the initial diagnosis of COVID-19. The initial SARS-CoV-2 RT PCR was negative on June 07. The CT showed complete resolution of the lymphomatous masses or lymph nodes compared with the previous one, but in the chest, there are diffuse ground-glass opacities suggestive of atypical pneumonia. ASSESSMENT AND DISCUSSION: Large cell lymphoma with chemotherapy at [facility], initially on Rituxan and then transitioned to obinutuzumab with pretty much complete response. Treatment had to be interrupted because of COVID-19 and then she had COVID-19 diagnosed about a month before this visit. She was treated with monoclonal antibodies and improved after it, but now she is having weight loss, fever, tachypnea, and diffuse pneumonitis. She does have cardiomyopathy with ejection fraction 20% to 25% and I wonder how much of the infiltrates is due to edema or to the pneumonitis. They did send a brain natriuretic peptide. It was 942, so it was elevated, but she must have an additional cause of the pulmonary infiltrates beyond the congestive heart failure. There is no evidence of jugular vein distention, so the right-sided cardiac pressures do not seem to be elevated, so Pneumocystis and persistence of COVID-19 is a concern and we will submit more assays, submit a carious test and may need Pulmonary to see her. May need a bronchoscopy. I think we can hold off on spinal tap for the time being. Other sites do not seem to represent a problem at this point in time. Job ID: [id number]
[2020-06-10] MEDS: Mirtazapine 15 MG TAB PO SCH (20:59)
[2020-06-10] MEDS: Atorvastatin Calcium 40 MG TAB PO SCH (20:59)
[2020-06-11] MEDS: Cefepime 1 GM in Sodium Chloride 0.9% 100 ML IVPB SCH ×2 (03:00→12:54)
[2020-06-11] MEDS: Acetaminophen 325 MG TAB PO PRN ×3 (03:28→20:33)
[2020-06-11 08:31] LABS: ALT (SGPT) 11 U/L (8-55); AST (SGOT) 24 U/L (5-34); Albumin 2.6 g/dL (3.4-4.8); Alkaline Phosphatase 39 U/L (40-110); Anion Gap 12 mmol/L (10-20); BUN (Urea Nitrogen) 8 mg/dL (9.8-20.1); Bilirubin, Total 0.7 mg/dL (0.2-1.2); Calc. Creatinine Clearance 102 mL/min (70-130); Calcium 7.7 mg/dL (7.8-10.44); Carbon Dioxide 20 mmol/L (23-31); Chloride 109 mmol/L (98-107); Globulin 2.3 g/dL (2.4-3.5); Glucose 102 mg/dL (83-110); Potassium 3.6 mmol/L (3.5-5.1); Protein, Total 4.9 g/dL (5.8-8.1); Sodium 137 mmol/L (136-145)
[2020-06-11] MEDS: D5 1/2 NS w/20 mEq KCL 1,000 ML IV SCH ×2 (09:19→18:31)
[2020-06-11] MEDS: Enoxaparin Sodium 40 MG/0.4 ML SYRINGE SC SCH (09:20)
[2020-06-11] MEDS: Aspirin 81 mg Enteric Coated Tablet PO SCH (09:20)
[2020-06-11] MEDS: Thiamine 100 MG TAB PO SCH (09:20)
[2020-06-11] MEDS: Multivit, Therapeutic 1 TAB PO SCH (09:21)
--- NOTE | 2020-06-11 14:57 | RAD ---
EXAM: XR Abdomen 1 View/KUB PROVIDED CLINICAL HISTORY: Nasogastric tube placement and verification of location. COMPARISON: None FINDINGS: Dobbhoff feeding tube is noted in place with the tip overlying the upper abdomen which overlies expec nieves location of the body of the stomach. Residual contrast is seen within the colon. Interstitial and parenchymal airspace opacities are seen at each lung base which could be related to infectious pr ocess. IMPRESSION: 1. Dobbhoff feeding tube in place with tip overlying the expected location of the body of the stomach . 2. Residual contrast in the colon. 3. Interstitial and peripheral airspace opacities at each lung base worrisome for infectious process.
[2020-06-11 15:08] LABS: Ref Lab Test Ordered KARIUS; Reference Lab Name KARIUS
--- NOTE | 2020-06-11 17:27 | PDOC.HOSPP ---
- Subjective Encounter Date: 06/11/20 Subjective: Still feels generally lousy. She only ate about 1 bite of her breakfast today. Today she is amenable to considering a Dobbhoff tube. - Objective Vital Signs & Weight: Vital Signs (12 hours) Temp Pulse Resp BP Pulse Ox 06/11/20 16:50 97.5 F L 88 24 H 107/59 L 97 06/11/20 13:35 101.2 F H 06/11/20 13:07 101.2 F H 102 H 24 H 136/74 92 L 06/11/20 09:40 99.3 F 104 H 22 H 127/66 94 L Weight Admit Weight 136 lb 1.6 oz Weight 136 lb 1.6 oz I&O: 06/10/20 06/11/20 06/12/20 06:59 06:59 06:59 Intake Total 2760 1830 Output Total 1750 Balance 2760 80 Result Diagrams: 06/10/20 03:59 06/11/20 07:35 Hospitalist ROS - Medication Medications: Active Medications Generic Name Dose Route Start Last Admin Trade Name Freq PRN Reason Stop Dose Admin Acetaminophen 650 mg 06/04/20 16:47 06/11/20 13:35 Acetaminophen 325 Mg Tab PO 650 mg Q4H PRN Administration Headache/Fever/Mild Pain (1-3) Aspirin 81 mg 06/05/20 09:00 06/11/20 09:20 Aspirin 81 Mg Enteric Coated Tablet PO 81 mg DAILY JOZEF Administration Atorvastatin Calcium 40 mg 06/04/20 21:00 06/10/20 20:59 Atorvastatin Calcium 40 Mg Tab PO 40 mg HS JOZEF Administration Enoxaparin Sodium 40 mg 06/05/20 09:00 06/11/20 09:20 Enoxaparin Sodium 40 Mg/0.4 Ml Syringe SC 40 mg 0900 JOZEF Administration Cefepime HCl 1 gm/ Sodium 100 mls @ 200 mls/hr 06/09/20 14:00 06/11/20 12:54 Chloride IVPB 100 mls 0200,1400 JOZEF Administration Potassium Chloride/Dextrose/Sod Cl 1,000 mls @ 75 mls/hr 06/10/20 16:00 06/11/20 09:19 D5 1/2 Ns W/20 Meq Kcl IV 1,000 mls .[id number] JOZEF Administration Mirtazapine 15 mg 06/08/20 21:00 06/10/20 20:59 Mirtazapine 15 Mg Tab PO 15 mg HS JOZEF Administration Multivitamins 1 tab 06/09/20 09:00 06/11/20 09:21 Multivit, Therapeutic 1 Tab PO 1 tab DAILY JOZEF Administration Sodium Chloride 10 ml 06/06/20 09:00 06/11/20 09:21 Flush - Normal Saline 10 Ml Syringe IVF 10 ml Q12HR JOZEF Administration Thiamine HCl 100 mg 06/09/20 09:00 06/11/20 09:20 Thiamine 100 Mg Tab PO 100 mg DAILY JOZEF Administration Hospitalist Exam Vitals: Vital Signs (12 hours) Temp Pulse Resp BP Pulse Ox 06/11/20 16:50 97.5 F L 88 24 H 107/59 L 97 06/11/20 13:35 101.2 F H 06/11/20 13:07 101.2 F H 102 H 24 H 136/74 92 L 06/11/20 09:40 99.3 F 104 H 22 H 127/66 94 L Weight Admit Weight 136 lb 1.6 oz Weight 136 lb 1.6 oz General Appearance: NAD, awake alert Heart: RRR, no murmur, no gallops, no rubs, normal peripheral pulses Respiratory: no wheezes, no ronchi, rales (Bilateral and more diffuse) Extremities: no cyanosis, no clubbing, no edema Neurological: no focal deficits Musculoskeletal: generalized weakness, diffuse muscle atrophy Psychiatric: normal affect, normal behavior, A&O x 3 Hosp A/P (1) Acute metabolic encephalopathy Code(s): G93.41 - METABOLIC ENCEPHALOPATHY Status: Acute (2) Urinary tract infection Status: Acute (3) Decreased oral intake Code(s): R63.8 - OTHER SYMPTOMS AND SIGNS CONCERNING FOOD AND FLUID INTAKE Status: Acute (4) Elevated troponin Code(s): R77.8 - OTHER SPECIFIED ABNORMALITIES OF PLASMA PROTEINS Status: Acute (5) Fever Code(s): R50.9 - FEVER, UNSPECIFIED Status: Acute (6) Lymphoma Status: Chronic (7) Takotsubo cardiomyopathy Code(s): I51.81 - TAKOTSUBO SYNDROME Status: Acute (8) Hypotension Status: Acute (9) Pneumonitis Code(s): J18.9 - PNEUMONIA, UNSPECIFIED ORGANISM Status: Acute (10) Severe protein-calorie malnutrition Code(s): E43 - UNSPECIFIED SEVERE PROTEIN-CALORIE MALNUTRITION Status: Acute - Plan Acute metabolic encephalopathy: Initial etiology unclear. Appears to likely be due to a febrile/infectious etiology. Improved and fully resolved. Possible urinary tract infection: Initial urinalysis on 06/04/2020 was generally unremarkable. Repeat on 06/06/2020 revealed evidence of potential urinary tract infection. Patient was already covered empirically with appropriate antibiotics. Blood cultures remain negative. Confirmed with the lab that there was not a urine culture reflexed likely due to too many epithelial cells. Converted from cefepime and vancomycin to oral Macrobid on 06/08/2020. Patient became febrile again on the evening of 06/08/2020. Repeat urinalysis ordered with again just equivocal findings. Febrile illness: Patient was febrile and encephalopathic on presentation. Some evidence of urinary tract infection present. Chest x-ray was clear. Covid screen sent on 06/07/2020 which was negative. (Patient had Covid in March) Recurrent fever on 06/09/2020 with a negative repeat chest x-ray. Patient has no specific symptoms but simply feels generally lethargic. Blood cultures were repeated. Cefepime resumed (she did not miss more than 1 dose). I have left a message with her oncologist at [facility]. I do not believe she has significant lymphoma burden at this point. She has no physical exam findings of lymphadenopathy. Possible she could have some fever related to lymphoma but without significant tumor burden this is less likely. ID consulted. CT abdomen and pelvis did not reveal any specific source of infection. Did reveal significant improvement in her overall tumor burden and splenomegaly. There was some dysmotility in the esophagus. Cryptococcal antigen was also negative. Stool lactoferrin negative, C. difficile negative Pneumonitis: Likely related to the febrile illness. Apparent history of COVID-19 in April. Negative antibodies. 1 - test here. Second pending. Dr. Mchugh covering with IV Bactrim and steroids for possible PCP pneumonia. Karius test pending. Takotsubo cardiomyopathy: Patient had slight elevation in troponins. Echocardiogram revealed EF of 20 to 25% with Takotsubo cardiomyopathy likely. LifeVest was ordered. Attempts were made to place the patient on lisinopril and Coreg at very low doses. Patient subsequently developed hypotension and these were discontinued. Plan is for the patient have a repeat echocardiogram in 1 month. The hope is that she will resolve this and be able to come out of the LifeVest at that time. Hypotension: On 06/07/2020 the patient had hypotension with systolics as low as the 70s. Patient had received 1.56 mg of carvedilol. She did not receive lisinopril. She was given 500 cc normal saline bolus and her blood pressure appeared to respond nicely. Blood pressure remained normal subsequent until being a bit low again on 06/09/2020. Received intermittent boluses. Appeared to improve with adequate hydration. Elevated troponins: Cardiology is suspicious of indicates this is a type II NSTEMI due to demand ischemia. Lymphoma: Patient is followed at [facility]. Most recent chemotherapy was early April. Appears generally stable. 06/09/2020 a call was placed to her oncologist Dr. Cristian Benitez ([phone], option #4) Need to discuss her fever and her severe anorexia. 06/10/2020 have not heard back from her oncologist. Anorexia: This is been present for a number of weeks. Seems to have gotten somewhat worse in the last 3 weeks. Suspect this is multifactorial. Patient has a lot of psychosocial stressors which may be causing some degree of depression. I believe she also had compromised taste and smell following her Covid. She also describes early satiety. She has no abdominal pain associated with this otherwise. Fairly severe and that the patient has significant protein malnutrition (moderate). Long discussion with the patient and her daughter. We will start Remeron 15 mg p.o. nightly. We will likely need to titrate that up to 30 mg. May need to consider Marinol as a second line agent. Reviewed with the patient's daughter mechanisms for trying to stimulate appetite somewhat through increased flavoring of foods yet trying to avoid salt. Discussed with the patient need to eat frequently throughout the day and focus on high nutritional value foods with protein. Appreciate GI consult. Generally agreed with current recommendations. Given her cardiomyopathy consideration for any type of further endoscopic investigation will be deferred. With some evidence of esophageal dysmotility on her CT scan. Patient has also had a gastric sleeve performed which could be causing some additional reflux concerns. Reviewed with GI the recommendations were for upright eating posture and consideration of full liquid diet. Moderate protein calorie malnutrition: As above. Patient was amenable to Dobbhoff tube placement with temporary enteral feeds while we work out her febrile illness issues. This is placed on 06-11-2020. We will follow the dietitian recommendations of Jevity 1.5 bolus feeds. Possible urine retention: Patient had a palpable bladder when ID examined her. Today ultrasound did reveal 450 cc in the bladder. Post void residual was 150 cc. In light of her recurring fever will get urology consult. DVT prophylaxis: Lovenox.
[2020-06-11] MEDS: BIOTENE MOUTH SPRAY 44.3 ML MM SCH ×3 (18:30→19:53)
[2020-06-11] MEDS: TRIMETHOPRIM IVPB SCH ×2 (18:36→22:55)
[2020-06-11] MEDS: SULFAMETHOXAZOLE IVPB SCH ×2 (18:36→22:55)
[2020-06-11] MEDS: SODIUM CHLORIDE 0.9% IVPB SCH ×2 (18:36→22:55)
[2020-06-11] MEDS: Atorvastatin Calcium 40 MG TAB PO SCH (19:52)
[2020-06-11] MEDS: Mirtazapine 15 MG TAB PO SCH (19:52)
[2020-06-11] MEDS: methylPREDNISolone Sod Succ 40 MG VIAL IVP SCH (19:53)
[2020-06-11 22:26] LABS: SARS-CoV-2 PCR by NAA DETECTED (NotDetected)
[2020-06-11] MEDS ORDERED: Ibuprofen 200 MG TAB PO SCH (23:45)
[2020-06-12] MEDS: Cefepime 1 GM in Sodium Chloride 0.9% 100 ML IVPB SCH ×2 (01:05→14:32)
--- NOTE | 2020-06-12 02:54 | CON ---
DATE OF CONSULTATION: 06/11/2020 REASON FOR CONSULTATION: Urinary symptoms. HISTORY OF PRESENT ILLNESS: Ms. Washington is an 79-year-old female, who was admitted to the hospital on 06/04/2020 with complaints of diminished oral intake, some confusion, and weakness. She has a significant past medical history of lymphoma, being managed with chemotherapy and also history of breast cancer. She has been in the hospital since then receiving supportive care and evaluation for her somewhat nonspecific symptoms. She was noted to have an elevated postvoid residual. She states that for a couple of months, she has had intermittent problems with difficulty initiating her stream, intermittent problems with urgency, intermittent problems with nocturia. She denies any prior urologic history. She denies any flank pain. She denies any history of recurrent urinary tract infections or gross hematuria. She has not had a Pa catheter in place during this admission. PAST MEDICAL HISTORY: Lymphoma, breast cancer, and exposure to COVID recently. SOCIAL HISTORY: She is a nonsmoker. Denies alcohol use. ALLERGIES: PENICILLIN. REVIEW OF SYSTEMS: RESPIRATORY: Denies any wheezing. CARDIOVASCULAR: Denies chest pain or palpitations. GASTROINTESTINAL: Denies chronic constipation or diarrhea. FAMILY HISTORY: Noncontributory. PHYSICAL EXAMINATION: GENERAL: She is awake, alert. She is in no distress. She answers questions appropriately. VITAL SIGNS: Most recent vital signs; temperature 101.4, pulse 89, and O2 saturation 97% on room air. HEENT: Normocephalic and atraumatic. NECK: Supple without masses. CHEST: Clear to auscultation. CARDIOVASCULAR: Regular rate and rhythm. ABDOMEN: Soft, nontender. No palpable masses. Liver and spleen are not palpable. No abdominal tenderness noted. LABORATORY DATA: Blood cultures on admission negative. Urine testing demonstrates no bacteria on admission. IMPRESSION: Ms. Washington is an 79-year-old female, who is being evaluated for weight loss, weakness, altered mental status, and has complained of some subacute onset of urinary symptoms that began within the last 1-2 months. She has not had a catheter since her admission except once. When I checked the residual, apparently it has elevated. It is unclear whether the catheterized urine sample was actually a postvoid sample or not. She has no prior urologic history. RECOMMENDATIONS: 1. Check postvoid residual by catheter. If high, we will recommend Pa catheterization to allow for decompression of the bladder temporarily. If postvoid residual is low, she is a candidate for anticholinergic therapy to treat her irritative voiding symptoms, but I am hesitant to proceed in that way as it can result in some altered mental status in elderly. This may be used later once her current clinical situation has improved. 2. Catheterize urine volume. 3. Urine culture. Job ID: [id number]
[2020-06-12] MEDS: TRIMETHOPRIM IVPB SCH ×3 (05:39→17:41)
[2020-06-12] MEDS: SULFAMETHOXAZOLE IVPB SCH ×3 (05:39→17:41)
[2020-06-12] MEDS: BIOTENE MOUTH SPRAY 44.3 ML MM SCH ×4 (05:39→17:41)
[2020-06-12] MEDS: SODIUM CHLORIDE 0.9% IVPB SCH ×3 (05:39→17:41)
[2020-06-12] MEDS: methylPREDNISolone Sod Succ 40 MG VIAL IVP SCH ×2 (08:16→21:08)
[2020-06-12] MEDS: Thiamine 100 MG TAB PO SCH (08:16)
[2020-06-12] MEDS: Aspirin 81 mg Enteric Coated Tablet PO SCH (08:16)
[2020-06-12] MEDS: Enoxaparin Sodium 40 MG/0.4 ML SYRINGE SC SCH (08:16)
[2020-06-12] MEDS: Multivit, Therapeutic 1 TAB PO SCH (08:16)
[2020-06-12] MEDS ORDERED: REMDESIVIR (EUA) 200 MG in Sodium Chloride 0.9% 250 ML 210 ML IV SCH (11:15)
--- NOTE | 2020-06-12 14:26 | PDOC.PALCO ---
Palliative Care Consult - Consult Details Requesting Physician: Dr Chavis Reason for Consult: goals of care, symptom management - Pertinent HPI 79 year old female who was admitted 06/04/20 secondary to decrease in intake, onset of confusion, and weakness. Currently in treatment for lymphoma/receiving chemotherapy. Confirms in conversation she has had a weight loss of 20 lbs in past two months. Several distressing family dynamics that could be contributory to weight loss paired with multiple morbidities. After admission was noted to be Covid +. She is experiencing anosmia, ageusia, poor appetite, mild dry cough. Denies fever, headache. Secondary to poor intake dobhoff was placed to right nare. - Social History Smoking Status: Never smoker Smoking: no tobacco exposure Alcohol Use: occasional Drug Use History: none Living Situation: independent - Medications MAR Reviewed: Yes - Allergies Allergies/Adverse Reactions: Allergies Allergy/AdvReac Type Severity Reaction Status Date / Time Penicillins Allergy itching Verified 06/05/20 05:04 - Subjective Awake, alert, frustrated. In discussing poor intake she confirms not only lack of appetite related to illness, but that she is aware the sadness surrounding her grandsons recent car accident and husbands decline are also negatively impacting her appetite. Confirms weakness. - ROS Constitutional: alert, loss appetite, weakness, weight changes ENT: dry mouth, throat irritation Respiratory: other (very mild intermittant dry cough) Cardiology: other (Denies chest pain palpitations) Gastrointestinal: other (Denies nausea, vomiting) Neurological: change in ability to smell, changes in taste, other (Denies headache) Skin: bruising - Objective Vital Signs: Vital Signs - Most Recent Temp Pulse Resp BP Pulse Ox 98.1 F 76 18 97/52 L 93 L 06/12/20 13:43 06/12/20 13:43 06/12/20 13:43 06/12/20 13:43 06/12/20 13:43 Palliative Performance Scale: 50 - Physical Exam Constitutional: ill appearing Deviation from normal: Sunken ocular bed, mild temporal wasting HEENT: EOMI, moist MMs, sclera anicteric Respiratory: no wheezing, unlabored breathing Cardiovascular: RRR Gastrointestinal: soft, non-tender Musculoskeletal: no cyanosis, no clubbing, diffuse muscle atrophy Neurology: no focal deficits Psychiatric: A&O x 3, normal mood, depressed - Problem List (1) Palliative care encounter Code(s): Z51.5 - ENCOUNTER FOR PALLIATIVE CARE Current Visit: Yes Status: Acute (2) Decreased oral intake Code(s): R63.8 - OTHER SYMPTOMS AND SIGNS CONCERNING FOOD AND FLUID INTAKE Current Visit: Yes Status: Acute (3) Severe protein-calorie malnutrition Code(s): E43 - UNSPECIFIED SEVERE PROTEIN-CALORIE MALNUTRITION Current Visit: Yes Status: Acute (4) Takotsubo cardiomyopathy Code(s): I51.81 - TAKOTSUBO SYNDROME Current Visit: Yes Status: Acute (5) Urinary tract infection Current Visit: Yes Status: Acute (6) Lymphoma Current Visit: Yes Status: Chronic - Plan/Recommendations Plan: Biotene ordered/patient confirms mitigating dry mouth Continues on remeron/added Marinol after discussing with Dr Chavis Ms Felix will attempt to eat then supplementation with bolus feeding if not adequate intake. Hopeful added use of Remeron will positively impact emotional state as well as appetite and promote optimal nocturnal sleep pattern. Teaching effect will be one-two week. Communicated with Dr Chavis. Emotional support offered with therapeutic listening in relation to family members who are ill/injured and her current disease processes. [55] minutes spent on this encounter with >50% of the time in counseling and coordination of care. Thank you for this very appropriate consult.
[2020-06-12] MEDS: D5 1/2 NS w/20 mEq KCL 1,000 ML IV SCH ×2 (14:32)
[2020-06-12] MEDS: Dronabinol 2.5 MG CAP PO SCH (16:35)
--- NOTE | 2020-06-12 18:52 | PDOC.HOSPP ---
- Subjective Encounter Date: 06/12/20 Subjective: Patient says she actually feels like she is doing a little bit better today although she does not want to admit because she does not want to give any credit to the Dobbhoff tube feeds. She says she feels like she would be willing to eat more aggressively if we can get the Dobbhoff out. Otherwise she is largely without complaints. Denies any further diarrhea. - Objective Vital Signs & Weight: Vital Signs (12 hours) Temp Pulse Resp BP Pulse Ox 06/12/20 13:43 98.1 F 76 18 97/52 L 93 L 06/12/20 12:00 97.6 F 79 19 103/59 L 93 L 06/12/20 08:00 97.5 F L 76 18 105/55 L 92 L Weight Admit Weight 136 lb 1.6 oz Weight 136 lb 1.6 oz I&O: 06/11/20 06/12/20 06/13/20 06:59 06:59 06:59 Intake Total 1830 1140 360 Output Total 1750 1300 450 Balance 80 -160 -90 Result Diagrams: 06/10/20 03:59 06/11/20 07:35 Hospitalist ROS - Medication Medications: Active Medications Generic Name Dose Route Start Last Admin Trade Name Freq PRN Reason Stop Dose Admin Acetaminophen 650 mg 06/04/20 16:47 06/11/20 20:33 Acetaminophen 325 Mg Tab PO 650 mg Q4H PRN Administration Headache/Fever/Mild Pain (1-3) Aspirin 81 mg 06/05/20 09:00 06/12/20 08:16 Aspirin 81 Mg Enteric Coated Tablet PO 81 mg DAILY JOZEF Administration Atorvastatin Calcium 40 mg 06/04/20 21:00 06/11/20 19:52 Atorvastatin Calcium 40 Mg Tab PO 40 mg HS JOZEF Administration Dronabinol 2.5 mg 06/12/20 16:30 06/12/20 16:35 Dronabinol 2.5 Mg Cap PO 2.5 mg BID-AC JOZEF Administration Enoxaparin Sodium 40 mg 06/05/20 09:00 06/12/20 08:16 Enoxaparin Sodium 40 Mg/0.4 Ml Syringe SC 40 mg 0900 JOZEF Administration Cefepime HCl 1 gm/ Sodium 100 mls @ 200 mls/hr 06/09/20 14:00 06/12/20 14:32 Chloride IVPB 100 mls 0200,1400 JOZEF Administration Potassium Chloride/Dextrose/Sod Cl 1,000 mls @ 75 mls/hr 06/10/20 16:00 06/12/20 14:32 D5 1/2 Ns W/20 Meq Kcl IV 1,000 mls .[id number] JOZEF Administration Trimethoprim/Sulfamethoxazole 250 mls @ 125 mls/hr 06/11/20 18:00 06/12/20 17:41 200 mg/ Sodium Chloride IVPB 250 mls Q6HR JOZEF Administration Methylprednisolone Sodium Succinate 20 mg 06/11/20 21:00 06/12/20 08:16 Methylprednisolone Sod Succ 40 Mg Vial IVP 20 mg Q12HR JOZEF Administration Mirtazapine 15 mg 06/08/20 21:00 06/11/20 19:52 Mirtazapine 15 Mg Tab PO 15 mg HS JOZEF Administration Miscellaneous Medication 0 ml 06/11/20 14:00 06/12/20 17:41 Biotene Mouth [place] 44.3 Ml MM 1 spr [id number] JOZEF Administration Multivitamins 1 tab 06/09/20 09:00 06/12/20 08:16 Multivit, Therapeutic 1 Tab PO 1 tab DAILY JOZEF Administration Sodium Chloride 10 ml 06/06/20 09:00 06/12/20 08:17 Flush - Normal Saline 10 Ml Syringe IVF 10 ml Q12HR JOZEF Administration Thiamine HCl 100 mg 06/09/20 09:00 06/12/20 08:16 Thiamine 100 Mg Tab PO 100 mg DAILY JOZEF Administration Hospitalist Exam Vitals: Vital Signs (12 hours) Temp Pulse Resp BP Pulse Ox 06/12/20 13:43 98.1 F 76 18 97/52 L 93 L 06/12/20 12:00 97.6 F 79 19 103/59 L 93 L 06/12/20 08:00 97.5 F L 76 18 105/55 L 92 L Weight Admit Weight 136 lb 1.6 oz Weight 136 lb 1.6 oz General Appearance: NAD, awake alert General - other findings: Dobbhoff tube in place Heart: RRR, no murmur, no gallops, no rubs, normal peripheral pulses Respiratory: no wheezes, no ronchi, rales (Scattered bilateral) Gastrointestinal: soft, non-tender, non-distended, normal bowel sounds, no palpable masses, no hepatomegaly, no splenomegaly, no bruit Extremities: no cyanosis, no clubbing, no edema Neurological: no focal deficits Musculoskeletal: generalized weakness, diffuse muscle atrophy Psychiatric: normal affect, normal behavior, A&O x 3 Hosp A/P (1) Acute metabolic encephalopathy Code(s): G93.41 - METABOLIC ENCEPHALOPATHY Status: Acute (2) Urinary tract infection Status: Acute (3) Decreased oral intake Code(s): R63.8 - OTHER SYMPTOMS AND SIGNS CONCERNING FOOD AND FLUID INTAKE Status: Acute (4) Elevated troponin Code(s): R77.8 - OTHER SPECIFIED ABNORMALITIES OF PLASMA PROTEINS Status: Acute (5) Fever Code(s): R50.9 - FEVER, UNSPECIFIED Status: Acute (6) Lymphoma Status: Chronic (7) Takotsubo cardiomyopathy Code(s): I51.81 - TAKOTSUBO SYNDROME Status: Acute (8) Hypotension Status: Acute (9) Pneumonitis Code(s): J18.9 - PNEUMONIA, UNSPECIFIED ORGANISM Status: Acute (10) Severe protein-calorie malnutrition Code(s): E43 - UNSPECIFIED SEVERE PROTEIN-CALORIE MALNUTRITION Status: Acute - Plan Acute metabolic encephalopathy: Initial etiology unclear. Appears to likely be due to a febrile/infectious etiology. Improved and fully resolved. Possible urinary tract infection: Initial urinalysis on 06/04/2020 was generally unremarkable. Repeat on 06/06/2020 revealed evidence of potential urinary tract infection. Patient was already covered empirically with appropriate antibiotics. Blood cultures remain negative. Confirmed with the lab that there was not a urine culture reflexed likely due to too many epithelial cells. Converted from cefepime and vancomycin to oral Macrobid on 06/08/2020. Patient became febrile again on the evening of 06/08/2020. Repeat urinalysis ordered with again just equivocal findings. Febrile illness: Patient was febrile and encephalopathic on presentation. Some evidence of urinary tract infection present. Chest x-ray was clear. Covid screen sent on 06/07/2020 which was negative. (Patient had Covid in March) Recurrent fever on 06/09/2020 with a negative repeat chest x-ray. Patient has no specific symptoms but simply feels generally lethargic. Blood cultures were repeated. Cefepime resumed (she did not miss more than 1 dose). I have left a message with her oncologist at [facility]. I do not believe she has significant lymphoma burden at this point. She has no physical exam findings of lymphadenopathy. Possible she could have some fever related to lymphoma but without significant tumor burden this is less likely. ID consulted. CT abdomen and pelvis did not reveal any specific source of infection. Did reveal significant improvement in her overall tumor burden and splenomegaly. There was some dysmotility in the esophagus. Cryptococcal antigen was also negative. Stool lactoferrin negative, C. difficile negative Covid antibodies were negative. Repeat Covid test here has now returned positive. Given her fever, evidence of pneumonitis, positive Covid test this will be treated. COVID-19 pneumonia: As above. Dr. Mchugh following. Convalescent plasma and remdesivir ordered given her immunocompromise state. Continue steroids. Follow inflammatory markers. Pneumonitis: Likely related to the febrile illness. Apparent history of COVID-19 in April. Negative antibodies. 1 - test here. Second positive. Dr. Mchugh covering with IV Bactrim and steroids for possible PCP pneumonia. Karius test pending. Takotsubo cardiomyopathy: Patient had slight elevation in troponins. Echocardiogram revealed EF of 20 to 25% with Takotsubo cardiomyopathy likely. LifeVest was ordered. Attempts were made to place the patient on lisinopril and Coreg at very low doses. Patient subsequently developed hypotension and these were discontinued. Plan is for the patient have a repeat echocardiogram in 1 month. The hope is that she will resolve this and be able to come out of the LifeVest at that time. Hypotension: On 06/07/2020 the patient had hypotension with systolics as low as the 70s. Patient had received 1.56 mg of carvedilol. She did not receive lisinopril. She was given 500 cc normal saline bolus and her blood pressure appeared to respond nicely. Blood pressure remained normal subsequent until being a bit low again on 06/09/2020. Received intermittent boluses. Appeared to improve with adequate hydration. Elevated troponins: Cardiology is suspicious of indicates this is a type II NSTEMI due to demand ischemia. Lymphoma: Patient is followed at [facility]. Most recent chemotherapy was early April. Appears generally stable. 06/09/2020 a call was placed to her oncologist Dr. Cristian Benitez ([phone] , option #4) Need to discuss her fever and her severe anorexia. 06/10/2020 have not heard back from her oncologist. Anorexia: This is been present for a number of weeks. Seems to have gotten somewhat worse in the last 3 weeks. Suspect this is multifactorial. Patient has a lot of psychosocial stressors which may be causing some degree of depression. I believe she also had compromised taste and smell following her Covid. She also describes early satiety. She has no abdominal pain associated with this otherwise. Fairly severe and that the patient has significant protein malnutrition (moderate). Long discussion with the patient and her daughter. We will start Remeron 15 mg p.o. nightly. We will likely need to titrate that up to 30 mg. May need to consider Marinol as a second line agent. Reviewed with the patient's daughter mechanisms for trying to stimulate appetite somewhat through increased flavoring of foods yet trying to avoid salt. Discussed with the patient need to eat frequently throughout the day and focus on high nutritional value foods with protein. Appreciate GI consult. Generally agreed with current recommendations. Given her cardiomyopathy consideration for any type of further endoscopic investigation will be deferred. With some evidence of esophageal dysmotility on her CT scan. Patient has also had a gastric sleeve performed which could be causing some additional reflux concerns. Reviewed with GI the recommendations were for upright eating posture and consideration of full liquid diet. Patient was willing to have the Dobbhoff tube placed on 06/11/2020. This was successfully placed and feeds have started with Jevity 1.5. Moderate protein calorie malnutrition: As above. Patient was amenable to Dobbhoff tube placement with temporary enteral feeds while we work out her febrile illness issues. This is placed on 06-11-2020. We will follow the dietitian recommendations of Jevity 1.5 bolus feeds. Possible urine retention: Patient had a palpable bladder when ID examined her. Today ultrasound did reveal 450 cc in the bladder. Post void residual was 150 cc. In light of her recurring fever will get urology consult. DVT prophylaxis: Lovenox.
[2020-06-12] MEDS: Atorvastatin Calcium 40 MG TAB PO SCH (21:08)
[2020-06-12] MEDS: Mirtazapine 15 MG TAB PO SCH (21:08)
[2020-06-13] MEDS: D5 1/2 NS w/20 mEq KCL 1,000 ML IV SCH ×2 (00:54→18:07)
[2020-06-13] MEDS: Cefepime 1 GM in Sodium Chloride 0.9% 100 ML IVPB SCH ×2 (01:24→13:50)
[2020-06-13 05:09] LABS: #Lymphocytes 0.2 thou/uL (1.20-3.40); #Monocytes 0.1 thou/uL (0.11-0.59); #Neutrophils 2.3 thou/uL (1.40-6.50); %Basophils 0.3 % (0.0-1.0); %Eosinophils 0.2 % (0.0-10.0); %Lymphocytes 7.7 % (21.0-51.0); %Monocytes 3.5 % (0.0-10.0); %Neutrophils 88.3 % (42.0-75.0); Hemoglobin 10.6 g/dL (12.0-16.0); Mean Corpuscular HGB CONC 32.5 g/dL (32.0-36.0); Mean Corpuscular Hemoglobin 28.6 pg (27.0-31.0); Mean Corpuscular Volume 88.2 fL (78.0-98.0); Mean Platelet Volume 8.5 fL (7.4-10.4); Platelet Count 168 thou/uL (130-400); RBC Distribution Width 12.7 % (11.5-14.5); Red Blood Cell (RBC) Count 3.69 mill/uL (4.20-5.40); White Blood Cell (WBC) Count 2.6 thou/uL (4.8-10.8)
[2020-06-13 05:28] LABS: Anion Gap 12 mmol/L (10-20); BUN (Urea Nitrogen) 8 mg/dL (9.8-20.1); Calc. Creatinine Clearance 86 mL/min (70-130); Calcium 7.7 mg/dL (7.8-10.44); Carbon Dioxide 19 mmol/L (23-31); Chloride 111 mmol/L (98-107); Glucose 135 mg/dL (83-110); Magnesium 1.8 mg/dL (1.6-2.6); Potassium 3.9 mmol/L (3.5-5.1); Sodium 138 mmol/L (136-145)
[2020-06-13] MEDS: Enoxaparin Sodium 40 MG/0.4 ML SYRINGE SC SCH (08:16)
[2020-06-13] MEDS: Dexamethasone 4 mg/ml Vial SLOW IVP SCH (08:16)
[2020-06-13] MEDS: Multivit, Therapeutic 1 TAB PO SCH (08:22)
[2020-06-13] MEDS: Thiamine 100 MG TAB PO SCH (08:22)
[2020-06-13] MEDS: Dronabinol 2.5 MG CAP PO SCH ×2 (08:23→18:00)
[2020-06-13] MEDS: Aspirin 81 mg Enteric Coated Tablet PO SCH (08:23)
--- NOTE | 2020-06-13 08:23 | RAD ---
EXAM: XR Chest 1 View Portable PROVIDED CLINICAL HISTORY: Covid pneumonia COMPARISON: 06/09/2020 FINDINGS: Cardiac and mediastinal silhouette is unchanged in appearance. The appearance of the lung parenchyma is unchanged in appearance. Enteric catheter is now present, tip of which is not visualized but below the diaphragm. No pleural fluid or pneumothorax apparent. IMPRESSION: No significant interval change.
[2020-06-13] MEDS: BIOTENE MOUTH SPRAY 44.3 ML MM SCH (08:28)
[2020-06-13] MEDS: REMDESIVIR (EUA) 100 MG in Sodium Chloride 0.9% 250 ML 230 ML IV SCH (11:05)
--- NOTE | 2020-06-13 15:35 | PRG ---
DATE OF SERVICE: 06/12/2020 SUBJECTIVE: She has not had any change clinically. She does have a feeding tube in at this time for poor p.o. intake. OBJECTIVE: VITAL SIGNS: T-max 101.7, blood pressure 106/56, pulse 89, respiratory rate 16, O2 saturation 97% on room air. ABDOMEN: Soft, nontender. No peritoneal signs. LABORATORY DATA: COVID test positive from nasopharyngeal swab on 06/11/2020. Urinalysis on 06/10/2020, consistent with urinary tract infection. Postvoid residual low. IMPRESSION: Ms. Washington is an 79-year-old female, seen by me for urinary complaints, frequency and urgency, and a report of an elevated postvoid residual. A catheterized sample has been obtained since then that was postvoid, and residual was low and normal. Her urinalysis, however, did demonstrate signs consistent with urinary tract infection. Her urinalysis on 06/04 and 06/06 were normal, but the one performed on 06/10 demonstrated 3+ bacteria. It does not appear that the sample is sent for culture. She has been placed on Bactrim per oral feeding tube. RECOMMENDATIONS: I feel it is in her best interest to avoid any new medications, especially anticholinergics that may alter her mentation. In addition, her urinary symptoms are likely to improve with adequate treatment of presumed urinary tract infection. Job ID: [id number]
--- NOTE | 2020-06-13 18:08 | PDOC.HOSPP ---
- Subjective Subjective: Patient was seen examined at bedside. Patient apparently took out her Dobbhoff tube this morning per nursing staff. She also ate about 25-50% of her breakfast. She denies any short of breath. She is currently satting well on room air. No fever. Repeated chest x-ray was unremarkable/unchanged. Patient is currently is on cefepime, remdesivir as well as status post convalescent plasma. She is on IV Decadron. Appreciate urology input. Her Bactrim has been discontinued by ID. I have updated her daughter, Damari on the phone. - Objective Vital Signs & Weight: Vital Signs (12 hours) Temp Pulse Pulse Resp BP BP Pulse Ox 06/13/20 16:28 98.1 F 85 25 H 115/57 L 95 06/13/20 14:15 98.2 F 80 24 H 112/55 L 96 06/13/20 10:57 98.2 F 91 24 H 97/52 L 95 06/13/20 08:00 96 06/13/20 07:31 98.2 F 92 18 123/60 93 L Weight Admit Weight 136 lb 1.6 oz Weight 136 lb 1.6 oz I&O: 06/12/20 06/13/20 06/14/20 06:59 06:59 06:59 Intake Total 1140 480 240 Output Total 1300 950 Balance -160 -470 240 Result Diagrams: 06/13/20 04:47 06/13/20 04:47 Hospitalist ROS - Medication Medications: Active Medications Generic Name Dose Route Start Last Admin Trade Name Freq PRN Reason Stop Dose Admin Acetaminophen 650 mg 06/04/20 16:47 06/11/20 20:33 Acetaminophen 325 Mg Tab PO 650 mg Q4H PRN Administration Headache/Fever/Mild Pain (1-3) Aspirin 81 mg 06/05/20 09:00 06/13/20 08:23 Aspirin 81 Mg Enteric Coated Tablet PO 81 mg DAILY JOZEF Administration Atorvastatin Calcium 40 mg 06/04/20 21:00 06/12/20 21:08 Atorvastatin Calcium 40 Mg Tab PO 40 mg HS JOZEF Administration Dexamethasone 6 mg 06/13/20 09:00 06/13/20 08:16 Dexamethasone 4 Mg/Ml Vial SLOW IVP 6 mg DAILY JOZEF Administration Dronabinol 2.5 mg 06/12/20 16:30 06/13/20 18:00 Dronabinol 2.5 Mg Cap PO 2.5 mg BID-AC JOZEF Administration Enoxaparin Sodium 40 mg 06/05/20 09:00 06/13/20 08:16 Enoxaparin Sodium 40 Mg/0.4 Ml Syringe SC 40 mg 0900 JOZEF Administration Potassium Chloride/Dextrose/Sod Cl 1,000 mls @ 75 mls/hr 06/10/20 16:00 06/13/20 18:07 D5 1/2 Ns W/20 Meq Kcl IV 1,000 mls .[id number] JOZEF Administration Remdesivir 100 mg/ Sodium 250 mls @ 250 mls/hr 06/13/20 09:00 06/13/20 11:05 Chloride IV 06/16/20 09:59 250 mls 0900 JOZEF Administration Mirtazapine 15 mg 06/08/20 21:00 06/12/20 21:08 Mirtazapine 15 Mg Tab PO 15 mg HS JOZEF Administration Miscellaneous Medication 0 gm 06/13/20 06:00 06/13/20 18:00 Biotene Gel 42 Gm TOP 1 inch [id number] JOZEF Administration Multivitamins 1 tab 06/09/20 09:00 06/13/20 08:22 Multivit, Therapeutic 1 Tab PO 1 tab DAILY JOZEF Administration Sodium Chloride 10 ml 06/06/20 09:00 06/13/20 08:23 Flush - Normal Saline 10 Ml Syringe IVF 10 ml Q12HR JOZEF Administration Thiamine HCl 100 mg 06/09/20 09:00 06/13/20 08:22 Thiamine 100 Mg Tab PO 100 mg DAILY JOZEF Administration Hospitalist Exam Vitals: Vital Signs (12 hours) Temp Pulse Pulse Resp BP BP Pulse Ox 06/13/20 16:28 98.1 F 85 25 H 115/57 L 95 06/13/20 14:15 98.2 F 80 24 H 112/55 L 96 06/13/20 10:57 98.2 F 91 24 H 97/52 L 95 06/13/20 08:00 96 06/13/20 07:31 98.2 F 92 18 123/60 93 L Weight Admit Weight 136 lb 1.6 oz Weight 136 lb 1.6 oz General Appearance: NAD Eye: PERRL ENT: normocephalic atraumatic Neck: supple Heart: RRR, no murmur Respiratory: rhonchi Gastrointestinal: soft Extremities: no cyanosis Skin: normal turgor Neurological: cranial nerve grossly intact Musculoskeletal: normal tone Psychiatric: normal affect, normal behavior, A&O x 3 Hosp A/P (1) COVID-19 Code(s): U07.1 - COVID-19 Status: Acute (2) Acute metabolic encephalopathy Code(s): G93.41 - METABOLIC ENCEPHALOPATHY Status: Acute (3) Decreased oral intake Code(s): R63.8 - OTHER SYMPTOMS AND SIGNS CONCERNING FOOD AND FLUID INTAKE Status: Acute (4) Delirium Code(s): R41.0 - DISORIENTATION, UNSPECIFIED Status: Acute (5) Elevated troponin Code(s): R77.8 - OTHER SPECIFIED ABNORMALITIES OF PLASMA PROTEINS Status: Acute (6) Fever Code(s): R50.9 - FEVER, UNSPECIFIED Status: Acute (7) Hypotension Status: Acute (8) Palliative care encounter Code(s): Z51.5 - ENCOUNTER FOR PALLIATIVE CARE Status: Acute (9) Pneumonitis Code(s): J18.9 - PNEUMONIA, UNSPECIFIED ORGANISM Status: Acute (10) Severe protein-calorie malnutrition Code(s): E43 - UNSPECIFIED SEVERE PROTEIN-CALORIE MALNUTRITION Status: Acute (11) Takotsubo cardiomyopathy Code(s): I51.81 - TAKOTSUBO SYNDROME Status: Acute (12) Urinary tract infection Status: Acute (13) Lymphoma Status: Chronic - Plan Acute metabolic encephalopathy: Initial etiology unclear. Appears to likely be due to a febrile/infectious etiology. Improved and fully resolved. Possible urinary tract infection: Initial urinalysis on 06/04/2020 was generally unremarkable. Repeat on 06/06/2020 revealed evidence of potential urinary tract infection. Patient was already covered empirically with appropriate antibiotics. Blood cultures remain negative. Confirmed with the lab that there was not a urine culture reflexed likely due to too many epithelial cells. Converted from cefepime and vancomycin to oral Macrobid on 06/08/2020. Patient became febrile again on the evening of 06/08/2020. Repeat urinalysis ordered with again just equivocal findings. Urology input appreciated, follow UCx Febrile illness: Patient was febrile and encephalopathic on presentation. Some evidence of urinary tract infection present. Chest x-ray was clear. Covid screen sent on 06/07/2020 which was negative. (Patient had Covid in March) Recurrent fever on 06/09/2020 with a negative repeat chest x-ray. Patient has no specific symptoms but simply feels generally lethargic. Blood cultures were repeated. Cefepime resumed (she did not miss more than 1 dose). I have left a message with her oncologist at [facility]. I do not believe she has significant lymphoma burden at this point. She has no physical exam findings of lymphadenopathy. Possible she could have some fever related to lymphoma but without significant tumor burden this is less likely. ID consulted. CT abdomen and pelvis did not reveal any specific source of infection. Did reveal significant improvement in her overall tumor burden and splenomegaly. There was some dysmotility in the esophagus. Cryptococcal antigen was also negative. Stool lactoferrin negative, C. difficile negative Covid antibodies were negative. Repeat Covid test here has now returned positive. Given her fever, evidence of pneumonitis, positive Covid test this will be treated. No further fever since 06/12 COVID-19 pneumonia: As above. Dr. Mchugh following. Convalescent plasma and remdesivir ordered given her immunocompromise state. Continue steroids. Follow inflammatory markers. Pt has not much of respiratory symptoms and remains on room air Pneumonitis: Likely related to the febrile illness. Apparent history of COVID-19 in April. Negative antibodies. 1 - test here. Second positive. Dr. Mchugh covering with IV Bactrim and steroids for possible PCP pneumonia. Karius test pending. IV Bactrim discontinued 06/13 by ID Takotsubo cardiomyopathy: Patient had slight elevation in troponins. Echocardiogram revealed EF of 20 to 25% with Takotsubo cardiomyopathy likely. LifeVest was ordered. Attempts were made to place the patient on lisinopril and Coreg at very low doses. Patient subsequently developed hypotension and these were discontinued. Plan is for the patient have a repeat echocardiogram in 1 month. The hope is that she will resolve this and be able to come out of the LifeVest at that time. Hypotension: On 06/07/2020 the patient had hypotension with systolics as low as the 70s. Patient had received 1.56 mg of carvedilol. She did not receive lisinopril. She was given 500 cc normal saline bolus and her blood pressure appeared to respond nicely. Blood pressure remained normal subsequent until being a bit low again on 06/09/2020. Received intermittent boluses. Appeared to improve with adequate hydration. Elevated troponins: Cardiology is suspicious of indicates this is a type II NSTEMI due to demand ischemia. Lymphoma: Patient is followed at [facility]. Most recent chemotherapy was early April. Appears generally stable. 06/09/2020 a call was placed to her oncologist Dr. Cristian Benitez ([phone], option #4) Need to discuss her fever and her severe anorexia. 06/10/2020 have not heard back from her oncologist. Anorexia: This is been present for a number of weeks. Seems to have gotten somewhat worse in the last 3 weeks. Suspect this is multifactorial. Patient has a lot of psychosocial stressors which may be causing some degree of depression. I believe she also had compromised taste and smell following her Covid. She also describes early satiety. She has no abdominal pain associated with this otherwise. Fairly severe and that the patient has significant protein malnutrition (moderate). Long discussion with the patient and her daughter. We will start Remeron 15 mg p.o. nightly. We will likely need to titrate that up to 30 mg. May need to consider Marinol as a second line agent. Reviewed with the patient's daughter mechanisms for trying to stimulate appetite somewhat through increased flavoring of foods yet trying to avoid salt. Discussed with the patient need to eat frequently throughout the day and focus on high nutritional value foods with protein. Appreciate GI consult. Generally agreed with current recommendations. Given her cardiomyopathy consideration for any type of further endoscopic investigation will be deferred. With some evidence of esophageal dysmotility on her CT scan. Patient has also had a gastric sleeve performed which could be causing some additional reflux concerns. Reviewed with GI the recommendations were for upright eating posture and consideration of full liquid diet. Patient was willing to have the Dobbhoff tube placed on 06/11/2020. This was successfully placed and feeds have started with Jevity 1.5. Pt removed her Dobbhoff tube on 06/13, her diets appeared picking up with stimulants. Will leave TF out, and encouraged PO intake Moderate protein calorie malnutrition: As above. Patient was amenable to Dobbhoff tube placement with temporary enteral feeds while we work out her febrile illness issues. This is placed on 06-11-2020. We will follow the dietitian recommendations of Jevity 1.5 bolus feeds. Possible urine retention: Patient had a palpable bladder when ID examined her. Today ultrasound did reveal 450 cc in the bladder. Post void residual was 150 cc. In light of her recurring fever will get urology consult. appreciate urology, cont IV abx, follow culture. avoid start new anticholinergic agent DVT prophylaxis: Lovenox.
[2020-06-13] MEDS: Atorvastatin Calcium 40 MG TAB PO SCH (21:12)
[2020-06-13] MEDS: Mirtazapine 15 MG TAB PO SCH (21:12)
[2020-06-14] MEDS: D5 1/2 NS w/20 mEq KCL 1,000 ML IV SCH (05:16)
[2020-06-14 05:40] LABS: ALT (SGPT) 15 U/L (8-55); AST (SGOT) 26 U/L (5-34); Anion Gap 13 mmol/L (10-20); BUN (Urea Nitrogen) 12 mg/dL (9.8-20.1); CRP (Inflammatory) 1.98 mg/dL (= or < 0.5); Calc. Creatinine Clearance 89 mL/min (70-130); Calcium 8.1 mg/dL (7.8-10.44); Carbon Dioxide 20 mmol/L (23-31); Chloride 113 mmol/L (98-107); Glucose 74 mg/dL (83-110); Sodium 142 mmol/L (136-145)
--- NOTE | 2020-06-14 07:36 | PRG ---
DATE OF SERVICE: 06/13/2020 SUBJECTIVE: Looking much better today. She is very alert and in good mood, eating better. NG tube has been removed. OBJECTIVE: VITAL SIGNS: She is afebrile, probably from the steroids. Saturating 95% to 96% on room air. LUNGS: Clear to auscultation and percussion. HEART: S1-S2 regular rate. ABDOMEN: Soft, not distended. EXTREMITIES: No edema. Moves all extremities equally. LABORATORY DATA: White cell count is 2.6, hemoglobin 10.6, platelets 168, 88% neutrophils. Sodium 138, creatinine 0.51, albumin 2.6. Fungitell was less than 31, so she does not have Pneumocystis. Again, the second COVID test was positive. She is currently receiving remdesivir, plasma, Decadron. She was given cefepime as well. I think we can discontinue that and histoplasma antigen was less than 0.5, so we are just pending the CMV and the Karius test, but I think that we pretty much settle down on the COVID-19 hypothesis as the more likely one to explain the persistence of her fever and pneumonia. The chest x-ray showed a kind of faint fluffy infiltrates that we had noticed before bilaterally quite symmetric distribution. 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 Initially on Rituxan and now with obinutuzumab and then COVID-19 about a month ago, treated with monoclonals, improvement, but then weight loss, fever, cough, tachypnea, and diffuse pneumonitis. The workup suggests persistence of SARS-CoV-2 virus due to immunosuppression from the anti-CD20 chemotherapy. Her SARS-CoV-2 antibody four weeks after onset of illness are negative and we decided to treat again with remdesivir and plasma and going forward, she may need to have periodic monoclonal antibody infusions. I would probably treat with two different monoclonals which have been shown to suppress viral replication rather than just one if we can have access to that, probably a combination of bamlanivimab and etesevimab maybe would be the combination of choice for her. We will go ahead and discontinue cefepime. Job ID: [id number]
[2020-06-14] MEDS: Enoxaparin Sodium 40 MG/0.4 ML SYRINGE SC SCH (08:02)
[2020-06-14] MEDS: Dronabinol 2.5 MG CAP PO SCH ×2 (08:02→16:15)
[2020-06-14] MEDS: Dexamethasone 4 mg/ml Vial SLOW IVP SCH (08:03)
[2020-06-14] MEDS: Multivit, Therapeutic 1 TAB PO SCH (08:06)
[2020-06-14] MEDS: Thiamine 100 MG TAB PO SCH (08:06)
[2020-06-14] MEDS: Aspirin 81 mg Enteric Coated Tablet PO SCH (08:06)
[2020-06-14] MEDS: REMDESIVIR (EUA) 100 MG in Sodium Chloride 0.9% 250 ML 230 ML IV SCH (09:31)
--- NOTE | 2020-06-14 15:03 | PDOC.HOSPP ---
- Subjective Subjective: Patient was seen examined at bedside. Patient is responding well. Her appetite continues to improve. No other acute events overnight. Patient remains on room air. Appreciate input from ID - Objective Vital Signs & Weight: Vital Signs (12 hours) Temp Pulse Resp BP BP Pulse Ox 06/14/20 11:35 98.0 F 91 18 113/75 96 06/14/20 08:38 98.6 F 91 18 126/59 L 95 06/14/20 08:00 95 06/14/20 04:12 98.9 F 85 30 H 125/60 93 L Weight Admit Weight 136 lb 1.6 oz Weight 136 lb 1.6 oz I&O: 06/13/20 06/14/20 06/15/20 06:59 06:59 06:59 Intake Total 480 2281 Output Total 950 Balance -470 2281 Result Diagrams: 06/13/20 04:47 06/14/20 04:32 Hospitalist ROS - Medication Medications: Active Medications Generic Name Dose Route Start Last Admin Trade Name Freq PRN Reason Stop Dose Admin Acetaminophen 650 mg 06/04/20 16:47 06/11/20 20:33 Acetaminophen 325 Mg Tab PO 650 mg Q4H PRN Administration Headache/Fever/Mild Pain (1-3) Aspirin 81 mg 06/05/20 09:00 06/14/20 08:06 Aspirin 81 Mg Enteric Coated Tablet PO 81 mg DAILY JOZEF Administration Atorvastatin Calcium 40 mg 06/04/20 21:00 06/13/20 21:12 Atorvastatin Calcium 40 Mg Tab PO 40 mg HS JOZEF Administration Dexamethasone 6 mg 06/13/20 09:00 06/14/20 08:03 Dexamethasone 4 Mg/Ml Vial SLOW IVP 6 mg DAILY JOZEF Administration Dronabinol 2.5 mg 06/12/20 16:30 06/14/20 08:02 Dronabinol 2.5 Mg Cap PO 2.5 mg BID-AC JOZEF Administration Enoxaparin Sodium 40 mg 06/05/20 09:00 06/14/20 08:02 Enoxaparin Sodium 40 Mg/0.4 Ml Syringe SC 40 mg 0900 JOZEF Administration Remdesivir 100 mg/ Sodium 250 mls @ 250 mls/hr 06/13/20 09:00 06/14/20 09:31 Chloride IV 06/16/20 09:59 250 mls 0900 JOZEF Administration Mirtazapine 15 mg 06/08/20 21:00 06/13/20 21:12 Mirtazapine 15 Mg Tab PO 15 mg HS JOZEF Administration Miscellaneous Medication 0 gm 06/13/20 06:00 06/14/20 09:33 Biotene Gel 42 Gm TOP 1 inch [id number] JOZEF Administration Multivitamins 1 tab 06/09/20 09:00 06/14/20 08:06 Multivit, Therapeutic 1 Tab PO 1 tab DAILY JOZEF Administration Sodium Chloride 10 ml 06/06/20 09:00 06/14/20 08:06 Flush - Normal Saline 10 Ml Syringe IVF 10 ml Q12HR JOZEF Administration Thiamine HCl 100 mg 06/09/20 09:00 06/14/20 08:06 Thiamine 100 Mg Tab PO 100 mg DAILY JOZEF Administration Hospitalist Exam Vitals: Vital Signs (12 hours) Temp Pulse Resp BP BP Pulse Ox 06/14/20 11:35 98.0 F 91 18 113/75 96 06/14/20 08:38 98.6 F 91 18 126/59 L 95 06/14/20 08:00 95 06/14/20 04:12 98.9 F 85 30 H 125/60 93 L Weight Admit Weight 136 lb 1.6 oz Weight 136 lb 1.6 oz General Appearance: NAD Eye: PERRL ENT: normocephalic atraumatic Neck: supple Heart: RRR Respiratory: CTAB Gastrointestinal: soft Extremities: no cyanosis Skin: normal turgor Neurological: cranial nerve grossly intact Psychiatric: normal affect, normal behavior, A&O x 3 Hosp A/P (1) COVID-19 Code(s): U07.1 - COVID-19 Status: Acute (2) Acute metabolic encephalopathy Code(s): G93.41 - METABOLIC ENCEPHALOPATHY Status: Acute (3) Decreased oral intake Code(s): R63.8 - OTHER SYMPTOMS AND SIGNS CONCERNING FOOD AND FLUID INTAKE S tatus: Acute (4) Delirium Code(s): R41.0 - DISORIENTATION, UNSPECIFIED Status: Acute (5) Elevated troponin Code(s): R77.8 - OTHER SPECIFIED ABNORMALITIES OF PLASMA PROTEINS Status: Acute (6) Fever Code(s): R50.9 - FEVER, UNSPECIFIED Status: Acute (7) Hypotension Status: Acute (8) Palliative care encounter Code(s): Z51.5 - ENCOUNTER FOR PALLIATIVE CARE Status: Acute (9) Pneumonitis Code(s): J18.9 - PNEUMONIA, UNSPECIFIED ORGANISM Status: Acute (10) Severe protein-calorie malnutrition Code(s): E43 - UNSPECIFIED SEVERE PROTEIN-CALORIE MALNUTRITION Status: Acute (11) Takotsubo cardiomyopathy Code(s): I51.81 - TAKOTSUBO SYNDROME Status: Acute (12) Urinary tract infection Status: Acute (13) Lymphoma Status: Chronic - Plan Febrile illness: Patient was febrile and encephalopathic on presentation. Some evidence of urinary tract infection present. Chest x-ray was clear. Covid screen sent on 06/07/2020 which was negative. (Patient had Covid in March) Recurrent fever on 06/09/2020 with a negative repeat chest x-ray. Patient has no specific symptoms but simply feels generally lethargic. Blood cultures were repeated. Cefepime resumed (she did not miss more than 1 dose). I have left a message with her oncologist at [facility]. I do not believe she has significant lymphoma burden at this point. She has no physical exam findings of lymphadenopathy. Possible she could have some fever related to lymphoma but without significant tumor burden this is less likely. ID consulted. CT abdomen and pelvis did not reveal any specific source of infection. Did reveal significant improvement in her overall tumor burden and splenomegaly. There was some dysmotility in the esophagus. Cryptococcal antigen was also negative. Stool lactoferrin negative, C. difficile negative Covid antibodies were negative. Repeat Covid test here has now returned positive. Given her fever, evidence of pneumonitis, positive Covid test this will be treated. No further fever since 06/12 COVID-19 pneumonia: As above. Dr. Mchugh following. Convalescent plasma and remdesivir ordered given her immunocompromise state. co nt Redesivir 3/ Continue steroids. Follow inflammatory markers. Pt has not much of respiratory symptoms and remains on room air monitor LFTs Pneumonitis: Likely related to the febrile illness. Apparent history of COVID-19 in April. Negative antibodies. 1 - test here. Second positive. Dr. Mchugh covering with IV Bactrim and steroids for possible PCP pneumonia. Karius test pending. IV Bactrim discontinued 06/13 by ID Takotsubo cardiomyopathy: Patient had slight elevation in troponins. Echocardiogram revealed EF of 20 to 25% with Takotsubo cardiomyopathy likely. LifeVest was ordered. Attempts were made to place the patient on lisinopril and Coreg at very low doses. Patient subsequently developed hypotension and these were discontinued. Plan is for the patient have a repeat echocardiogram in 1 month. The hope is that she will resolve this and be able to come out of the LifeVest at that time. Hypotension: On 06/07/2020 the patient had hypotension with systolics as low as the 70s. Patient had received 1.56 mg of carvedilol. She did not receive lisinopril. She was given 500 cc normal saline bolus and her blood pressure appeared to respond nicely. Blood pressure remained normal subsequent until being a bit low again on 06/09/2020. Received intermittent boluses. Appeared to improve with adequate hydration. Elevated troponins: Cardiology is suspicious of indicates this is a type II NSTEMI due to demand ischemia. Lymphoma: Patient is followed at [facility]. Most recent chemotherapy was early April. Appears generally stable. 06/09/2020 a call was placed to her oncologist Dr. Cristian Benitez ([phone], option #4) Need to discuss her fever and her severe anorexia. 06/10/2020 have not heard back from her oncologist. Anorexia: This is been present for a number of weeks. Seems to have gotten somewhat worse in the last 3 weeks. Suspect this is multifactorial. Patient has a lot of psychosocial stressors which may be causing some degree of depression. I believe she also had compromised taste and smell following her Covid. She also describes early satiety. She has no abdominal pain associated with this otherwise. Fairly severe and that the patient has significant protein malnutrition (moderate). Long discussion with the patient and her daughter. We will start Remeron 15 mg p.o. nightly. We will likely need to titrate that up to 30 mg. May need to consider Marinol as a second line agent. Reviewed with the patient's daughter mechanisms for trying to stimulate appetite somewhat through increased flavoring of foods yet trying to avoid salt. Discussed with the patient need to eat frequently throughout the day and focus on high nutritional value foods with protein. Appreciate GI consult. Generally agreed with current recommendations. Given her cardiomyopathy consideration for any type of further endoscopic i nvestigation will be deferred. With some evidence of esophageal dysmotility on her CT scan. Patient has also had a gastric sleeve performed which could be causing some additional reflux concerns. Reviewed with GI the recommendations were for upright eating posture and consideration of full liquid diet. Patient was willing to have the Dobbhoff tube placed on 06/11/2020. This was successfully placed and feeds have started with Jevity 1.5. Pt removed her Dobbhoff tube on 06/13, her diets appeared picking up with stimulants. Will leave TF out, and encouraged PO intake Moderate protein calorie malnutrition: As above. Patient was amenable to Dobbhoff tube placement with temporary enteral feeds while we work out her febrile illness issues. This is placed on 06-11-2020. We will follow the dietitian recommendations of Jevity 1.5 bolus feeds. Possible urine retention: Patient had a palpable bladder when ID examined her. Today ultrasound did reveal 450 cc in the bladder. Post void residual was 150 cc. In light of her recurring fever will get urology consult. appreciate urology, cont IV abx, follow culture. avoid start new anticholinergic agent All IV abx discontinued by ID on 06/13 Acute metabolic encephalopathy: Initial etiology unclear. Appears to likely be due to a febrile/infectious etiology. Improved and fully resolved. Possible urinary tract infection: Initial urinalysis on 06/04/2020 was generally unremarkable. Repeat on 06/06/2020 revealed evidence of potential urinary tract infection. Patient was already covered empirically with appropriate antibiotics. Blood cultures remain negative. Confirmed with the lab that there was not a urine culture reflexed likely due to too many epithelial cells. Converted from cefepime and vancomycin to oral Macrobid on 06/08/2020. Patient became febrile again on the evening of 06/08/2020. Repeat urinalysis ordered with again just equivocal findings. Urology input appreciated, follow UCx DVT prophylaxis: Lovenox.
[2020-06-14] MEDS: Atorvastatin Calcium 40 MG TAB PO SCH (20:35)
[2020-06-14] MEDS: Mirtazapine 15 MG TAB PO SCH (20:35)
[2020-06-15 05:45] LABS: ALT (SGPT) 17 U/L (8-55); AST (SGOT) 24 U/L (5-34); Albumin 2.5 g/dL (3.4-4.8); Alkaline Phosphatase 43 U/L (40-110); Anion Gap 11 mmol/L (10-20); BUN (Urea Nitrogen) 15 mg/dL (9.8-20.1); Bilirubin, Total 0.6 mg/dL (0.2-1.2); CRP (Inflammatory) 3.04 mg/dL (= or < 0.5); Calc. Creatinine Clearance 99 mL/min (70-130); Calcium 7.9 mg/dL (7.8-10.44); Carbon Dioxide 26 mmol/L (23-31); Chloride 111 mmol/L (98-107); Globulin 2.2 g/dL (2.4-3.5); Glucose 76 mg/dL (83-110); Potassium 3.6 mmol/L (3.5-5.1); Protein, Total 4.7 g/dL (5.8-8.1); Sodium 144 mmol/L (136-145)
[2020-06-15] MEDS: Multivit, Therapeutic 1 TAB PO SCH (08:32)
[2020-06-15] MEDS: Aspirin 81 mg Enteric Coated Tablet PO SCH (08:32)
[2020-06-15] MEDS: Thiamine 100 MG TAB PO SCH (08:32)
[2020-06-15] MEDS: Enoxaparin Sodium 40 MG/0.4 ML SYRINGE SC SCH (08:32)
[2020-06-15] MEDS: Dexamethasone 4 mg/ml Vial SLOW IVP SCH (08:33)
[2020-06-15] MEDS: Dronabinol 2.5 MG CAP PO SCH ×2 (09:14→17:02)
[2020-06-15] MEDS: REMDESIVIR (EUA) 100 MG in Sodium Chloride 0.9% 250 ML 230 ML IV SCH (09:15)
[2020-06-15 13:16] VITALS: BMI 23.3
--- NOTE | 2020-06-15 16:11 | PRG ---
DATE OF SERVICE: 06/15/2020 SUBJECTIVE: Feeling better. She ate breakfast and lunch. Still constipated. No more dyspnea. No vomiting. No genitourinary symptoms. OBJECTIVE: VITAL SIGNS: She has remained afebrile, BP 114/57, heart rate 76. She states she is breathing at 20 times a minute, but I think she is breathing more like 16 times a minute. O2 saturations are 96 with room air. GENERAL: Awake, alert, oriented. LUNGS: Totally clear to auscultation and percussion. HEART: S1, S2, regular rate. ABDOMEN: Soft, not distended. EXTREMITIES: Moves extremities equally. No edema. LABORATORY DATA: White cell count has not been repeated. Chemistry, liver profile normal and albumin 2.5. Carrier's was negative for any pathogen. ASSESSMENT AND DISCUSSION: Large cell lymphoma, chemotherapy, apparently in remission, treated with Rituxan and obinutuzumab and then COVID-19 about a month before, treated with monoclonal antibody, bamlanivimab with improvement, and then subsequent development of progressively worsening fever, cough, and weight loss, tachypnea and diffuse pneumonitis. The workup suggests persistence of SARS-CoV2 infection due to the anti-CD 20 chemotherapy for the lymphoma. She has presented clear-cut response to remdesivir and Decadron, so I think that sort of confirms the diagnosis. No other pathogen has been identified. Going forward, she would need readministration of monoclonal antibodies to keep her protected for at least another 3 months. At this time, I would administer either combination of bamlanivimab and etesevimab or the alternate product from the other company. Two monoclonal antibodies are administered then it seems that there is much better control of viremia or viral replication. Vaccination would be important as well. The alternate approach would be to just give her the vaccine and forget about giving her monoclonal and see what response to the vaccine she derives. This may be a better approach. We will go ahead and repeat chest x-ray. Consider discharge planning for tomorrow when she finishes her remdesivir course. Job ID: [id number]
--- NOTE | 2020-06-15 16:44 | PDOC.HOSPP ---
- Subjective Subjective: Pt was seen and examined. Feeling much better today, ambulating and eating more today. Updated her daughter on the phone. - Objective Vital Signs & Weight: Vital Signs (12 hours) Temp Pulse Resp BP Pulse Ox 06/15/20 12:00 98.3 F 80 20 111/53 L 91 L 06/15/20 08:00 98.5 F 76 20 114/57 L 91 L Weight Admit Weight 136 lb 1.6 oz Weight 144 lb 11.2 oz I&O: 06/14/20 06/15/20 06/16/20 06:59 06:59 06:59 Intake Total 2281 1135 Balance 2281 1135 Result Diagrams: 06/13/20 04:47 06/15/20 05:04 Radiology Reviewed by me: Yes EKG Reviewed by me: Yes Hospitalist ROS - Medication Medications: Active Medications Generic Name Dose Route Start Last Admin Trade Name Freq PRN Reason Stop Dose Admin Acetaminophen 650 mg 06/04/20 16:47 06/11/20 20:33 Acetaminophen 325 Mg Tab PO 650 mg Q4H PRN Administration Headache/Fever/Mild Pain (1-3) Aspirin 81 mg 06/05/20 09:00 06/15/20 08:32 Aspirin 81 Mg Enteric Coated Tablet PO 81 mg DAILY JOZEF Administration Atorvastatin Calcium 40 mg 06/04/20 21:00 06/14/20 20:35 Atorvastatin Calcium 40 Mg Tab PO 40 mg HS JOZEF Administration Dexamethasone 6 mg 06/13/20 09:00 06/15/20 08:33 Dexamethasone 4 Mg/Ml Vial SLOW IVP 6 mg DAILY JOZEF Administration Dronabinol 2.5 mg 06/12/20 16:30 06/15/20 09:14 Dronabinol 2.5 Mg Cap PO 2.5 mg BID-AC JOZEF Administration Enoxaparin Sodium 40 mg 06/05/20 09:00 06/15/20 08:32 Enoxaparin Sodium 40 Mg/0.4 Ml Syringe SC 40 mg 0900 JOZEF Administration Remdesivir 100 mg/ Sodium 250 mls @ 250 mls/hr 06/13/20 09:00 06/15/20 09:15 Chloride IV 06/16/20 09:59 250 mls 0900 JOZEF Administration Mirtazapine 15 mg 06/08/20 21:00 06/14/20 20:35 Mirtazapine 15 Mg Tab PO 15 mg HS JOZEF Administration Miscellaneous Medication 0 gm 06/13/20 06:00 06/15/20 14:03 Biotene Gel 42 Gm TOP 1 inch [id number] JOZEF Administration Multivitamins 1 tab 06/09/20 09:00 06/15/20 08:32 Multivit, Therapeutic 1 Tab PO 1 tab DAILY JOZEF Administration Sodium Chloride 10 ml 06/06/20 09:00 06/15/20 08:33 Flush - Normal Saline 10 Ml Syringe IVF 10 ml Q12HR JOZEF Administration Thiamine HCl 100 mg 06/09/20 09:00 06/15/20 08:32 Thiamine 100 Mg Tab PO 100 mg DAILY JOZEF Administration Hospitalist Exam Vitals: Vital Signs (12 hours) Temp Pulse Resp BP Pulse Ox 06/15/20 12:00 98.3 F 80 20 111/53 L 91 L 06/15/20 08:00 98.5 F 76 20 114/57 L 91 L Weight Admit Weight 136 lb 1.6 oz Weight 144 lb 11.2 oz General Appearance: NAD Eye: PERRL ENT: normocephalic atraumatic Neck: supple Heart: RRR, no murmur, no gallops Respiratory: CTAB, no wheezes, no rales Gastrointestinal: soft, non-tender, non-distended Extremities: no cyanosis, no clubbing, no edema Skin: normal turgor Neurological: cranial nerve grossly intact, normal sensation to touch Musculoskeletal: normal tone, normal strength Psychiatric: normal affect, normal behavior, A&O x 3 Hosp A/P (1) COVID-19 Code(s): U07.1 - COVID-19 Status: Acute (2) Acute metabolic encephalopathy Code(s): G93.41 - METABOLIC ENCEPHALOPATHY Status: Acute (3) Decreased oral intake Code(s): R63.8 - OTHER SYMPTOMS AND SIGNS CONCERNING FOOD AND FLUID INTAKE Status: Acute (4) Delirium Code(s): R41.0 - DISORIENTATION, UNSPECIFIED Status: Acute (5) Elevated troponin Code(s): R77.8 - OTHER SPECIFIED ABNORMALITIES OF PLASMA PROTEINS Status: Acute (6) Fever Code(s): R50.9 - FEVER, UNSPECIFIED Status: Acute (7) Hypotension Status: Acute (8) Palliative care encounter Code(s): Z51.5 - ENCOUNTER FOR PALLIATIVE CARE Status: Acute (9) Pneumonitis Code(s): J18.9 - PNEUMONIA, UNSPECIFIED ORGANISM Status: Acute (10) Severe protein-calorie malnutrition Code(s): E43 - UNSPECIFIED SEVERE PROTEIN-CALORIE MALNUTRITION Status: Acute (11) Takotsubo cardiomyopathy Code(s): I51.81 - TAKOTSUBO SYNDROME Status: Acute (12) Urinary tract infection Status: Acute (13) Lymphoma Status: Chronic - Plan Febrile illness: Patient was febrile and encephalopathic on presentation. Some evidence of urinary tract infection present. Chest x-ray was clear. Covid screen sent on 06/07/2020 which was negative. (Patient had Covid in March) Recurrent fever on 06/09/2020 with a negative repeat chest x-ray. Patient has no specific symptoms but simply feels generally lethargic. Blood cultures were repeated. Cefepime resumed (she did not miss more than 1 dose). I have left a message with her oncologist at [facility]. I do not believe she has significant lymphoma burden at this point. She has no physical exam findings of lymphadenopathy. Possible she could have some fever related to lymphoma but without significant tumor burden this is less likely. ID consulted. CT abdomen and pelvis did not reveal any specific source of infection. Did reveal significant improvement in her overall tumor burden and splenomegaly. There was some dysmotility in the esophagus. Cryptococcal antigen was also negative. Stool lactoferrin negative, C. difficile negative Covid antibodies were negative. Repeat Covid test here has now returned positive. Continue to do well. plan to complete Remdesir and d/c tomorrow. Updated pt's daughter. Will dw Dr. Mchugh tomorrow regarding followup for monoclonal infusion vs vaccine prior to dc follow up CXR COVID-19 pneumonia: As above. Dr. Mchugh following. Convalescent plasma and remdesivir ordered given her immunocompromise state. cont Redesivir 3/ Continue steroids. Follow inflammatory markers. Pt has not much of respiratory symptoms and remains on room air monitor LFTs Pneumonitis: Likely related to the febrile illness. Apparent history of COVID-19 in April. Negative antibodies. 1 - test here. Second positive. Dr. Mchugh covering with IV Bactrim and steroids for possible PCP pneumonia. Karius test pending. IV Bactrim discontinued 06/13 by ID Takotsubo cardiomyopathy: Patient had slight elevation in troponins. Echocardiogram revealed EF of 20 to 25% with Takotsubo cardiomyopathy likely. LifeVest was ordered. Attempts were made to place the patient on lisinopril and Coreg at very low doses. Patient subsequently developed hypotension and these were discontinued. Plan is for the patient have a repeat echocardiogram in 1 month. The hope is that she will resolve this and be able to come out of the LifeVest at that time. Hypotension: On 06/07/2020 the patient had hypotension with systolics as low as the 70s. Patient had received 1.56 mg of carvedilol. She did not receive lisinopril. She was given 500 cc normal saline bolus and her blood pressure appeared to respond nicely. Blood pressure remained normal subsequent until being a bit low again on 06/09/2020. Received intermittent boluses. Appeared to improve with adequate hydration. Elevated troponins: Cardiology is suspicious of indicates this is a type II NSTEMI due to demand ischemia. Lymphoma: Patient is followed at [facility]. Most recent chemotherapy was early April. Appears generally stable. 06/09/2020 a call was placed to her oncologist Dr. Cristian Benitez ([phone], option #[phone]) Need to discuss her fever and her severe anorexia. 06/10/2020 have not heard back from her oncologist. Anorexia: This is been present for a number of weeks. Seems to have gotten somewhat worse in the last 3 weeks. Suspect this is multifactorial. Patient has a lot of psychosocial stressors which may be causing some degree of depression. I believe she also had compromised taste and smell following her Covid. She also describes early satiety. She has no abdominal pain associated with this otherwise. Fairly severe and that the patient has significant protein malnutrition (moderate). Long discussion with the patient and her daughter. We will start Remeron 15 mg p.o. nightly. We will likely need to titrate that up to 30 mg. May need to consider Marinol as a second line agent. Reviewed with the patient's daughter mechanisms for trying to stimulate appetite somewhat through increased flavoring of foods yet trying to avoid salt. Discussed with the patient need to eat frequently throughout the day and focus on high nutritional value foods with protein. Appreciate GI consult. Generally agreed with current recommendations. Given her cardiomyopathy consideration for any type of further endoscopic investigation will be deferred. With some evidence of esophageal dysmotility on her CT scan. Patient has also had a gastric sleeve performed which could be causing some additional reflux concerns. Reviewed with GI the recommendations were for upright eating posture and consideration of full liquid diet. Patient was willing to have the Dobbhoff tube placed on 06/11/2020. This was successfully placed and feeds have started with Jevity 1.5. Pt removed her Dobbhoff tube on 06/13, her diets appeared picking up with stimulants. Will leave TF out, and encouraged PO intake Moderate protein calorie malnutrition: As above. Patient was amenable to Dobbhoff tube placement with temporary enteral feeds while we work out her febrile illness issues. This is placed on 06-11-2020. We will follow the dietitian recommendations of Jevity 1.5 bolus feeds. Possible urine retention: Patient had a palpable bladder when ID examined her. Today ultrasound did reveal 450 cc in the bladder. Post void residual was 150 cc. In light of her recurring fever will get urology consult. appreciate urology, cont IV abx, follow culture. avoid start new anticholinergic agent All IV abx discontinued by ID on 06/13 Acute metabolic encephalopathy: Initial etiology unclear. Appears to likely be due to a febrile/infectious etiology. Improved and fully resolved. Possible urinary tract infection: Initial urinalysis on 06/04/2020 was generally unremarkable. Repeat on 06/06/2020 revealed evidence of potential urinary tract infection. Patient was already covered empirically with appropriate antibiotics. Blood cultures remain negative. Confirmed with the lab that there was not a urine culture reflexed likely due to too many epithelial cells. Converted from cefepime and vancomycin to oral Macrobid on 06/08/2020. Patient became febrile again on the evening of 06/08/2020. Repeat urinalysis ordered with again just equivocal findings. Urology input appreciated, follow UCx DVT prophylaxis: Lovenox.
--- NOTE | 2020-06-15 20:01 | RAD ---
PORTABLE CHEST: Date: 06-15-2020 Time: 5:03 p.m. History: Follow up Covid 19 Comparison: 06-13-2020 FINDINGS: Feeding tube has been removed in the interim. The heart size is normal. The aorta is tortuous. Promin ent interstitial markings are again seen. No lobar consolidation, pneumothorax, or large effusions ar e identified. IMPRESSION: Stable exam. POS: OFF
[2020-06-15] MEDS: Atorvastatin Calcium 40 MG TAB PO SCH (20:15)
[2020-06-15] MEDS: Mirtazapine 15 MG TAB PO SCH (20:15)
[2020-06-16 05:16] LABS: AST (SGOT) 28 U/L (5-34); Anion Gap 12 mmol/L (10-20); BUN (Urea Nitrogen) 19 mg/dL (9.8-20.1); Calc. Creatinine Clearance 97 mL/min (70-130); Calcium 8.1 mg/dL (7.8-10.44); Carbon Dioxide 24 mmol/L (23-31); Chloride 111 mmol/L (98-107); Glucose 71 mg/dL (83-110); Potassium 3.7 mmol/L (3.5-5.1); Sodium 143 mmol/L (136-145)
[2020-06-16] MEDS: Aspirin 81 mg Enteric Coated Tablet PO SCH (08:37)
[2020-06-16] MEDS: REMDESIVIR (EUA) 100 MG in Sodium Chloride 0.9% 250 ML 230 ML IV SCH (08:37)
[2020-06-16] MEDS: Multivit, Therapeutic 1 TAB PO SCH (08:38)
[2020-06-16] MEDS: Enoxaparin Sodium 40 MG/0.4 ML SYRINGE SC SCH (08:38)
[2020-06-16] MEDS: Dronabinol 2.5 MG CAP PO SCH (08:38)
[2020-06-16] MEDS: Thiamine 100 MG TAB PO SCH (08:38)
[2020-06-16] MEDS: Dexamethasone 4 mg/ml Vial SLOW IVP SCH (08:38)
[2020-06-16 08:59] VITALS: TEMP 98.1
[2020-06-16 12:34] VITALS: BP 118/58
--- NOTE | 2020-06-16 13:00 | PDOC.DS.DS ---
Provider Date of Admission: 06/04/20 15:38 Date of Discharge: 06/16/20 Admitting Provider: Haley Kelly MD Consultations: Infectious Disease Primary Care Physician: Rafa Nava Jr, MD Course Hospital Course: Patient is a pleasant but unfortunate 79 years old female who has significant past medical histories of loss of lymphoma, was diagnosed in May 2019. Patient has been managed at [facility] over the past few months. In April 2020, she was tested positive for COVID-19, and she was given monoclonal antibody at [facility]. After infusion, see if felt better without any significant issue. But over the next few weeks, she developed weakness, confusion, and decreased appetite with significant weight loss. She was subsequently brought to the ED for further evaluation. Initial work-up, showed that she had mild elevated troponin. Echo so does he has significant cardiomyopathy with EF of 20-25%, cardiology was consulted. Patient was seen by Dr. Tejada, presumptively diagnosed with Takotsubo cardiomyopathy. Patient had a LifeVest placed, and is to follow-up with cardiology after discharge. With regard to her Covid infection. ID was con sulted. Patient was started on remdesivir, convalescent plasma, Decadron, as well as vitamin C/D/zinc given her immunocompromise status. She responded quite well. She remains on room air. Her mental status returned to baseline. Her appetite also picking up as well. She was started on couple of stimulants including Marinol and Remeron. At this time she had complete the course of remdesivir, and is feeling well and ready to be discharged home. I have discussed with Dr. Mchugh, he would like to obtain Covid antibody, and follow-up with him in 2 weeks. We also encouraged her to get her vaccines as soon as possible, and also he will determine on follow-up with her or not she will need further monoclonal antibody infusion. The plan of care discussed with the patient and her daughter. She will be discharged home with taper steroid, Eliquis for DVT prophylaxis. Lab Results: 06/13/20 04:47 06/16/20 04:35 Abnormal Lab Results - Last 48 hrs 06/15/20 05:04: Chloride 111 H, Creatinine 0.47 L, C-Reactive Protein 3.04 H, Serum Total Protein 4.7 L, Albumin 2.5 L, Globulin 2.2 L, Albumin/Globulin Ratio 1.1 L 06/16/20 04:35: Chloride 111 H, Creatinine 0.48 L 06/16/20 04:35: C-Reactive Protein 1.89 H 06/16/20 04:35: D-Dimer 0.67 H Microbiology - Entire Visit 06/09/20 13:36 Venous blood - Right Hand Blood Culture - Final NO GROWTH IN 5 DAYS 06/09/20 13:36 Venous blood - Right Arm Blood Culture - Final NO GROWTH IN 5 DAYS 06/06/20 07:59 Venous blood - Right Hand Blood Culture - Final NO GROWTH IN 5 DAYS 06/06/20 07:59 Venous blood - Left Hand Blood Culture - Final NO GROWTH IN 5 DAYS 06/10/20 15:00 Stool Stool Lactoferrin - Final 06/10/20 15:00 Stool C. difficile GDH Antigen & Toxins - Final 06/09/20 18:28 Serum Cryptococcal Antigen - Final Vitals: Vital Signs (12 hours) Temp Pulse Resp BP Pulse Ox 06/16/20 12:00 98.1 F 73 16 118/58 L 91 L 06/16/20 08:00 98.1 F 73 17 130/61 93 L 06/16/20 04:30 98 F 65 18 121/67 90 L Weight Admit Weight 136 lb 1.6 oz Weight 144 lb 11.2 oz Physical Exam: The patient was seen and examined on the day of discharge. General Appearance: NAD Eye: PERRL ENT: normocephalic atraumatic Neck: supple Respiratory: CTAB Cardiovascular: RRR Gastrointestinal: soft, non-tender Extremities: no cyanosis, no clubbing, no edema Skin: normal turgor, no lesions Problem Time Spent in discharge related activities (mins): 35 (1) COVID-19 Code(s): U07.1 - COVID-19 Status: Acute (2) Acute metabolic encephalopathy Code(s): G93.41 - METABOLIC ENCEPHALOPATHY Status: Acute (3) Decreased oral intake Code(s): R63.8 - OTHER SYMPTOMS AND SIGNS CONCERNING FOOD AND FLUID INTAKE Status: Acute (4) Delirium Code(s): R41.0 - DISORIENTATION, UNSPECIFIED Status: Acute (5) Elevated troponin Code(s): R77.8 - OTHER SPECIFIED ABNORMALITIES OF PLASMA PROTEINS Status: Acute (6) Fever Code(s): R50.9 - FEVER, UNSPECIFIED Status: Acute (7) Hypotension Status: Acute (8) Palliative care encounter Code(s): Z51.5 - ENCOUNTER FOR PALLIATIVE CARE Status: Acute (9) Pneumonitis Code(s): J18.9 - PNEUMONIA, UNSPECIFIED ORGANISM Status: Acute (10) Severe protein-calorie malnutrition Code(s): E43 - UNSPECIFIED SEVERE PROTEIN-CALORIE MALNUTRITION Status: Acute (11) Takotsubo cardiomyopathy Code(s): I51.81 - TAKOTSUBO SYNDROME Status: Acute (12) Urinary tract infection Status: Acute (13) Lymphoma Status: Chronic Plan Prescriptions: Aspirin [Ecotrin Low Strength] 81 mg PO DAILY #30 tab Apixaban [Eliquis] 2.5 mg PO BID #60 tab Atorvastatin Calcium [Lipitor] 40 mg PO HS #30 tab Dronabinol [Marinol] 2.5 mg PO BID-AC #60 cap predniSONE 10 mg PO QAM-WM #30 tab Pantoprazole [Protonix] 40 mg PO DAILY 1 Days #30 tab Mirtazapine [Remeron] 15 mg PO HS #30 tab Home Medications: Medication Instructions Recorded Confirmed Type Apixaban [Eliquis] 2.5 mg PO BID #60 tab 06/16/20 Rx Aspirin [Ecotrin Low Strength] 81 mg PO DAILY #30 tab 06/16/20 Rx Atorvastatin Calcium [Lipitor] 40 mg PO HS #30 tab 06/16/20 Rx Dronabinol [Marinol] 2.5 mg PO BID-AC #60 cap 06/16/20 Rx Mirtazapine [Remeron] 15 mg PO HS #30 tab 06/16/20 Rx Pantoprazole [Protonix] 40 mg PO DAILY 1 Days #30 tab 06/16/20 Rx predniSONE 10 mg PO QAM-WM #30 tab 06/16/20 Rx Allergies: Penicillins Allergy (Verified 06/05/20 05:04) itching Discharge Instructions:: Please complete the course of taper steroid as prescribed, and a blood thinner (Eliquis) for DVT prophylaxis Continue appetite stimulant including Marinol and Remeron. Follow-up with Dr. Mchugh in 2 weeks Please obtain his Covid vaccine as soon as possible Activity:: Activity as Tolerated Referrals: Leo Mchugh MD [Active] - 14 Days Ezekiel Blanco MD [Active] - 7 Days Disposition: HOME Quality CORE MEASURES:: N/A
[2020-06-17 07:16] LABS: CMV DNA-PCR Test Negative (Negative)
[2020-06-17 19:11] LABS: SARS-CoV-2 IgG Ab Non-Reactive (NonReactive); SARS-CoV-2 IgG Index 0.02 S/CO (< 1.40)
--- NOTE | 2020-06-18 11:46 | PQF ---
CLINICAL DOCUMENTATION CLARIFICATION FORM: Dear David Sanchez MD Date / Time: 06/18/20 1365 Please exercise your independent, professional judgment in responding to the clarification form. Clinical indicators are provided on the bottom of this form for your review COVID 19 Clarification and Manifestations: Please check appropriate box(es): A. COVID 19 virus diagnosis Validation: [X ] COVID-19 is an ongoing diagnosis from initial diagnosis in April [ ] COVID-19 is a new diagnosis developing after admission during this stay [ ] Other explanation of clinical findings [ ] Unable to determine B. COVID 19 virus with associated manifestations: (please check all that apply) [X ] Takotsubo Syndrome [ ] Type 2 ME [ X] Metabolic Encephalopathy [ ] Other diagnosis [ ] Unable to determine In addition, please specify: Present on Admission (POA): [ X ] Yes [ ] No [ ] Unable to determine Physician Signature: Date/Time: For continuity of documentation, please document condition throughout progress notes and discharge summary. Thank You. To be completed by CDI/Coding staff for physician review: Present Clinical Indicators - Signs / Symptoms / Labs Results and Location in Medical Record [ x ] Negative COVID-19 result 06/09, positive result 06/11 Per serology labs [ x ] This workup suggests persistence of SARS-CoV2 infection due to the anti- CD 20 chemotherapy for the lymphoma. Per progress note 06/15 Dr. Mchugh [ x ] Her elevated troponin is likely due to demand ischemia. It would be considered as type 2 ME Per consultation 06/05 Dr. Tejada [ x ] Acute metabolic encephalopathy Per progress note 06/07 Dr. Chavis [ x ] Takotsubo cardiomyopathy Per consultation 06/08 Dr. Tejada [ x ] She had COVID pneumonia back in March. Per consultation 06/08 Dr. Bajwa [ x ] The COVID-19 was diagnosed on May 09, so it has been more than a month since the original diagnosis. Per consultation 06/09 Dr. Mchugh Present Risk Factors Results and Location in Medical Record [ x ] 79-year-old woman with a history of lymphoma, recently being treated with chemotherapy. Per consultation 06/05 Dr. Tejada Present Treatments Results and Location in Medical Record [ x ] LifeVest placed Per discharge summary 06/16 Dr. Couch [ x ] Remdesivir, convalescent plasma, Decadron Per discharge summary 06/16 Dr. Couch [facility] Signature: Vanessa Rothman Date/Time: 06/18/20 1045 This is a permanent part of the Medical Record [facility]
== END 2020-06-16 14:20 | disposition home or self-care (01) | DRG 177 ==
LOC: ERS 12:28 → ERHOLD 15:38 → 2SW 06-05 07:26 → 2NO 06-09 18:49 → 2SW 06-12 10:36
PROVIDERS: ADMIT Internal Medicine; ATTEND Family Medicine
PROC: 8E0ZXY6 Isolation (ICD-10-PCS; 2020-06-09)
PROC: 0DH67UZ Insertion of Feeding Device into Stomach, Via Natural or Artificial Opening (ICD-10-PCS; 2020-06-11)
PROC: 3E0G76Z Introduction of Nutritional Substance into Upper GI, Via Natural or Artificial Opening (ICD-10-PCS; 2020-06-11)
PROC: XW033E5 Introduction of Remdesivir Anti-infective into Peripheral Vein, Percutaneous Approach, New Technology Group 5 (ICD-10-PCS; principal; 2020-06-12)
PROC: XW13325 Transfusion of Convalescent Plasma (Nonautologous) into Peripheral Vein, Percutaneous Approach, New Technology Group 5 (ICD-10-PCS; 2020-06-13)
DX: U07.1 COVID-19 (principal); J12.82 Pneumonia due to coronavirus disease 2019; E43 Unspecified severe protein-calorie malnutrition; G93.41 Metabolic encephalopathy; I51.81 Takotsubo syndrome; C83.30 Diffuse large B-cell lymphoma, unspecified site; I42.0 Dilated cardiomyopathy; F33.9 Major depressive disorder, recurrent, unspecified; N39.0 Urinary tract infection, site not specified; I95.9 Hypotension, unspecified; I10 Essential (primary) hypertension; R77.8 Other specified abnormalities of plasma proteins; D64.9 Anemia, unspecified; Z68.23 Body mass index [BMI] 23.0-23.9, adult; Z88.0 Allergy status to penicillin; Z85.3 Personal history of malignant neoplasm of breast; Z28.21 Immunization not carried out because of patient refusal
CPT/HCPCS: 36415; 36430; 71045; 71260; 74018; 74177; 80048; 80053; 80202; 81001; 81003; 81015; 82553; 82607; 82728; 82746; 83540; 83550; 83630; 83690; 83735; 83880; 84425; 84450; 84460; 84484; 85025; 85379; 86140; 86769; 86850; 86900; 86901; 87040; 87324; 87385; 87449; 87497; 87635; 87899; 93005; 93306; 96372; J0692; J1100; J1650; J2920; J3370; J3480; J3490; J7050; P9017; Q0167; Q9967; U0003; U0005

== ENCOUNTER 2021-11-25 09:41 | Outpatient (CLI) | payer MEDICARE | END 2021-11-25 09:42 | disposition home or self-care (01) | LOC: BICMAMMO 09:41 | PROVIDERS: ATTEND Internal Medicine | DX: M81.0 Age-related osteoporosis without current pathological fracture (principal); M85.851 Other specified disorders of bone density and structure, right thigh; M85.852 Other specified disorders of bone density and structure, left thigh | CPT/HCPCS: 77080 ==